=== PATIENT | male | born 1945 | race Caucasian/White ===

== ENCOUNTER 2017-01-03 11:13 | Emergency (ER) | payer MEDICARE ==
[~2017-01-03] VITALS: Ht 177.8 cm; Wt 86.2 kg
[~2017-01-03 11:13] MED LIST: /ESOM40CA OR; /PANT40TA; /PANT40TA OR; /TERBI25T OR; ACCU5TAB7; ALBUTEROL INH; ASPI81TA45; ATEN50TA2 OR; ATEN50TA2 PO; Albuterol Inhaler INH; BABY81CH OR; Bystolic; CALTRATE; DARV100T; DEPA250T2; DIAZIDE PO; EXCEDRIN; FLEXERIL; Flaxseed Oil PO; GABA300T; HYDR25TA6 OR; LISI20TA5 OR; LISI20TA5 PO; MAXA10TA17 OR; MAXA10TA17 PO; METH750T; MULTIVIT PO; NEBIVOLOL; NEUR300C; PRIL40CA; PROCTOFOAM PR; TERB250T OR; VICO5TAB OR; VICO5TAB PO; VIT; VIT D 2000 PO; VITA500T PO; VITAMIN D50000 UNT PO; ZEST20TA4 OR; ZOCO40TA; bystolic PO; flaxseed PO; lisinopril
[2017-01-03 11:14] VITALS: BP 157/73
[2017-01-03] MEDS ORDERED: ATEN50TA9 (11:32)
[2017-01-03] MEDS ORDERED: PANT40TA2 (11:32)
[2017-01-03] MEDS ORDERED: ZOLP10TA2 (11:32)
[2017-01-03] MEDS ORDERED: LIDOCAINE 2% JELLY 30 ML TOP ONE (12:15)
== END 2017-01-03 12:35 | disposition home or self-care (01) ==
LOC: M ED 12:26
DX: S01.91XA Laceration without foreign body of unspecified part of head, initial encounter (principal); W22.09XA Striking against other stationary object, initial encounter; Y92.019 Unspecified place in single-family (private) house as the place of occurrence of the external cause; Y93.89 Activity, other specified; Y99.8 Other external cause status; G43.909 Migraine, unspecified, not intractable, without status migrainosus; Z79.899 Other long term (current) drug therapy; Z88.8 Allergy status to other drugs, medicaments and biological substances

== ENCOUNTER 2017-07-19 18:15 | Emergency (ER) | payer MEDICARE ==
[~2017-07-19] VITALS: Ht 175.3 cm; Wt 85.9 kg
[~2017-07-19 18:15] MED LIST changes: +ATEN50TA9; +PANT40TA2; +ZOLP10TA2
[2017-07-19] MEDS ORDERED: GUAISYP5 PO (18:26)
[2017-07-19] MEDS ORDERED: HYDROCODONE-ACETAMIN (18:26)
[2017-07-19] MEDS ORDERED: methylPREDNISolone INJ 125 MG/2 ML VIAL (J2930) IV ONE (20:30)
[2017-07-19 20:57] LABS: VENOUS O2 SATURATION 91.4 % (60.0-80.0); VENOUS PARTIAL PRESSURE CO2 45.6 mmHg (38.0-50.0); VENOUS PARTIAL PRESSURE O2 58.1 mmHg (30.0-50.0); VENOUS STANDARD HCO3 26.1 MEQ/L; VENOUS TOTAL CO2 28.8 MEQ/L (24.0-28.0)
[2017-07-19 21:03] LABS: BASO # 0.1 10^3/uL (0.0-0.2); EOS # 0.3 10^3/uL (0.0-0.50); EOS % 4.4 % (0.0-3.0); IMMATURE GRANULOCYTE % 0.3 % (0-0); LYMPH # 1.9 10^3/uL (1.5-4.5); LYMPH % 27.7 % (24.0-44.0); MEAN CORPUSCULAR HEMOGLOBIN 29.9 pg (27.0-33.0); MEAN CORPUSCULAR VOLUME 87.9 fl (80.0-96.0); MONO # 0.6 10^3/uL (0.0-0.8); MONO % 8.1 % (0.0-5.0); NEUTROPHILS % 58.5 % (36.0-66.0); PLATELET COUNT, AUTOMATED 217 10^3/uL (150-450); RED CELL DISTRIBUTION WIDTH 12.4 % (11.5-14.5); WHITE BLOOD COUNT 6.8 10^3/uL (4.0-10.0)
[2017-07-19 21:27] LABS: ANION GAP 5 MEQ/L (8-16); BLOOD UREA NITROGEN 24 MG/DL (7-18); CALCIUM LEVEL 8.1 MG/DL (8.8-10.2); CARBON DIOXIDE LEVEL 29 MEQ/L (21-32); CHLORIDE LEVEL 106 MEQ/L (98-107); CREATININE FOR GFR 1.35 MG/DL (0.70-1.30); GLOMERULAR FILTRATION RATE 55.6 (>42); GLUCOSE, FASTING 140 MG/DL (83-110); POTASSIUM SERUM 3.7 MEQ/L (3.5-5.1); SODIUM LEVEL 140 MEQ/L (136-145)
[2017-07-19] MEDS: IPRATROPIUM 0.5MG/ALBUTEROL 2.5MG INH SOL UD 3ML (DUONEB)(J7620) NEB PRN ×2 (21:29→21:40)
[2017-07-19] MEDS ORDERED: ISOVUE-370 76% 100ML VIAL (Q9967) As Ordered ONE (22:44)
--- NOTE | 2017-07-19 23:20 | REPUSA ---
CT angiogram of the chest Clinical statement: Chest pain and shortness of breath. Technique: Multiple axial CT images were obtained from the thoracic inlet through the upper abdomen a fter a bolus administration of nonionic intravenous contrast. Coronal and sagittal reconstructions we re also obtained. Comparison: 10/31/2015. Findings: The pulmonary arteries are well-opacified with contrast, with no intraluminal filling defec ts to suggest embolism. The thoracic aorta is unremarkable. Thyroid gland is within normal limits. Th ere is no thoracic lymphadenopathy. There are no pericardial or pleural effusions. The lungs are atilio r. Limited imaging of the upper abdomen demonstrates several small gallstones and gallbladder. There are no suspicious osseous lesions. Impression: Unremarkable CT examination of the chest. No evidence of pulmonary embolism.
[2017-07-19] MEDS ORDERED: PRED20TA PO (23:45)
[2017-07-19] MEDS ORDERED: CEFU1TAB20 PO (23:45)
[2017-07-20 00:07] VITALS: BP 132/66
[2017-07-20] MEDS ORDERED: CEFUROXIME 500 MG TAB PO ONE (00:15)
--- NOTE | 2017-07-20 08:58 | REP ---
Clinical: Cough. Dyspnea . Comparison: 08/14/2016 . Technique: PA and lateral. Findings: The mediastinum and cardiac silhouette are normal. The lung hector are clear and without acute consolidation, effusion, or pneumothorax. The skeletal structures are intact and normal. Impression: 1. No acute cardiopulmonary process. Signed by Giovani Lemos MD 07/20/2017 08:50 A
[2017-07-20] MEDS ORDERED: CEFUROXIME 500 MG TAB PO SCH (09:00)
--- NOTE | 2017-07-20 14:14 | ECGEPIP ---
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
== END 2017-07-20 00:22 | disposition home or self-care (01) ==
LOC: M ED 18:15
DX: J20.9 Acute bronchitis, unspecified (principal); Z79.899 Other long term (current) drug therapy; Z88.8 Allergy status to other drugs, medicaments and biological substances; Z87.891 Personal history of nicotine dependence
CPT/HCPCS: 71020; 71275; 80048; 82550; 82553; 82803; 84484; 85025; 85379; 87040; 87070; 87077; 87184; 87205; 87804; 93005; 93041; 94640; 96374; 99285; J2930; Q9967

== ENCOUNTER 2017-11-03 07:57 | Observation (INO) | payer MEDICARE ==
[2017-11-03 08:41] LABS: BEDSIDE GLUCOSE 118 MG/DL (83-110)
[2017-11-03 08:59] LABS: BASO # 0.1 10^3/uL (0.0-0.2); BASO % 1.2 % (0.0-1.0); EOS # 0.3 10^3/uL (0.0-0.50); EOS % 5.9 % (0.0-3.0); HEMATOCRIT 40.2 % (42.0-52.0); HEMOGLOBIN 13.5 g/dl (14.0-18.0); IMMATURE GRANULOCYTE % 0.9 % (0-3.0); LYMPH # 1.4 10^3/uL (1.5-4.5); LYMPH % 24.4 % (24.0-44.0); MEAN CORPUSCULAR HEMOGLOBIN 29.5 pg (27.0-33.0); MEAN CORPUSCULAR HGB CONC 33.6 g/dl (32.0-36.5); MONO # 0.5 10^3/uL (0.0-0.8); MONO % 8.7 % (0.0-5.0); NEUTROPHILS # 3.4 10^3/uL (1.8-7.7); NEUTROPHILS % 58.9 % (36.0-66.0); PLATELET COUNT, AUTOMATED 193 10^3/uL (150-450); RED BLOOD COUNT 4.57 10^6/uL (4.30-6.10); RED CELL DISTRIBUTION WIDTH 12.7 % (11.5-14.5); WHITE BLOOD COUNT 5.7 10^3/uL (4.0-10.0)
[2017-11-03 09:17] LABS: ANION GAP 6 MEQ/L (8-16); BLOOD UREA NITROGEN 23 MG/DL (7-18); CALCIUM LEVEL 8.4 MG/DL (8.8-10.2); CARBON DIOXIDE LEVEL 28 MEQ/L (21-32); CHLORIDE LEVEL 106 MEQ/L (98-107); CREATININE FOR GFR 1.17 MG/DL (0.70-1.30); GLOMERULAR FILTRATION RATE > 60.0 (>42); GLUCOSE, FASTING 117 MG/DL (70-100); POTASSIUM SERUM 4.2 MEQ/L (3.5-5.1); SODIUM LEVEL 140 MEQ/L (136-145)
[2017-11-03 09:19] LABS: INR 0.99; PARTIAL THROMBOPLASTIN TIME 30.2 SECONDS (26.8-37.9); PROTHROMBIN TIME 13.2 SECONDS (12.4-14.5)
[2017-11-03] MEDS: NORCO, ANEXSIA 5/325MG TABLET (HYDROcodone/ACETAMINOPHEN) PO (09:50)
[2017-11-03] MEDS: LORazepam 2 MG/ML VIAL (J2060) IV (10:04)
[2017-11-03] MEDS ORDERED: ALBUTEROL 90 MCG/ACT 8GM HFA INHALER INH (15:45)
[2017-11-03] MEDS ORDERED: ACETAMINOPHEN 500 MG TAB PO (15:45)
[2017-11-03] MEDS: ENOXAPARIN 40 MG/0.4 ML SYRINGE (J1650) SC (15:53)
[2017-11-03] MEDS: CLOPIDOGREL 75 MG TAB PO (15:53)
[2017-11-03] MEDS: ATORVASTATIN 20 MG TAB PO (15:54)
[2017-11-03] MEDS: ASPIRIN 81 MG ENTERIC TAB PO (15:54)
[2017-11-03] MEDS: ACETAMINOPHEN TAB 650MG DOSE (2X325MG) PO (16:13)
[2017-11-03] MEDS ORDERED: SLF 3 ML SYR IV (22:45)
[2017-11-04 05:19] LABS: HEMATOCRIT 41.2 % (42.0-52.0); HEMOGLOBIN 13.4 g/dl (14.0-18.0); MEAN CORPUSCULAR HEMOGLOBIN 28.6 pg (27.0-33.0); MEAN CORPUSCULAR HGB CONC 32.5 g/dl (32.0-36.5); PLATELET COUNT, AUTOMATED 179 10^3/uL (150-450); RED BLOOD COUNT 4.68 10^6/uL (4.30-6.10); RED CELL DISTRIBUTION WIDTH 12.4 % (11.5-14.5); WHITE BLOOD COUNT 5.9 10^3/uL (4.0-10.0)
[2017-11-04 05:46] LABS: ANION GAP 6 MEQ/L (8-16); BLOOD UREA NITROGEN 21 MG/DL (7-18); CALCIUM LEVEL 8.7 MG/DL (8.8-10.2); CARBON DIOXIDE LEVEL 31 MEQ/L (21-32); CHLORIDE LEVEL 103 MEQ/L (98-107); CHOLESTEROL LEVEL 185 MG/DL (<200); CHOLESTEROL RISK RATIO 7.115 (<5); CREATININE FOR GFR 1.21 MG/DL (0.70-1.30); GLOMERULAR FILTRATION RATE > 60.0 (>42); GLUCOSE, FASTING 121 MG/DL (70-100); HDL CHOLESTEROL 26 MG/DL (>40); LDL CHOLESTEROL 97.2 MG/DL (<100); MAGNESIUM LEVEL 2.1 MG/DL (1.8-2.4); NON-HDL-C 159 MG/DL; SODIUM LEVEL 140 MEQ/L (136-145); TRIGLYCERIDES LEVEL 309 MG/DL (<150)
[2017-11-04] MEDS: SLF 3 ML SYR IV ×3 (05:46→14:15)
[2017-11-04 06:54] LABS: ESTIMATED AVERAGE GLUCOSE 126 MG/DL (60-110)
[2017-11-04] MEDS: VITAMIN E 400 INTERNATIONAL UNITS CAP PO (08:47)
[2017-11-04] MEDS: PANTOPRAZOLE 40MG TAB (PROTONIX) PO (08:47)
[2017-11-04] MEDS: ASCORBIC ACID 500 MG TAB PO (08:47)
[2017-11-04] MEDS: VITAMIN D 1,000 INTERNATIONAL UNITS TABLET PO (08:47)
[2017-11-04] MEDS: ATORVASTATIN 20 MG TAB PO (08:47)
[2017-11-04] MEDS: ENOXAPARIN 40 MG/0.4 ML SYRINGE (J1650) SC (08:48)
[2017-11-04] MEDS: ATENOLOL 50 MG TAB PO (08:48)
[2017-11-04] MEDS: ASPIRIN 81 MG ENTERIC TAB PO (08:53)
[2017-11-04] MEDS ORDERED: CLOPIDOGREL 75 MG TAB PO (09:00)
[2017-11-04] MEDS ORDERED: ATORVASTATIN 20 MG TAB PO (09:00)
[2017-11-04] MEDS: CHLORTHALIDONE 25 MG TAB PO (09:00)
[2017-11-04] MEDS: RIZATRIPTAN MLT 10 MG TAB PO (14:13)
[2017-11-05 05:36] LABS: HEMATOCRIT 40.2 % (42.0-52.0); HEMOGLOBIN 13.5 g/dl (14.0-18.0); MEAN CORPUSCULAR HGB CONC 33.6 g/dl (32.0-36.5); MEAN CORPUSCULAR VOLUME 86.3 fl (80.0-96.0); PLATELET COUNT, AUTOMATED 176 10^3/uL (150-450); RED BLOOD COUNT 4.66 10^6/uL (4.30-6.10); RED CELL DISTRIBUTION WIDTH 12.4 % (11.5-14.5); WHITE BLOOD COUNT 5.5 10^3/uL (4.0-10.0)
[2017-11-05 05:52] LABS: ANION GAP 6 MEQ/L (8-16); BLOOD UREA NITROGEN 25 MG/DL (7-18); CALCIUM LEVEL 8.1 MG/DL (8.8-10.2); CARBON DIOXIDE LEVEL 28 MEQ/L (21-32); CHLORIDE LEVEL 108 MEQ/L (98-107); CREATININE FOR GFR 1.33 MG/DL (0.70-1.30); GLOMERULAR FILTRATION RATE 56.6 (>42); GLUCOSE, FASTING 126 MG/DL (70-100); SODIUM LEVEL 142 MEQ/L (136-145)
[2017-11-05] MEDS: SLF 3 ML SYR IV (06:27)
[2017-11-05] MEDS: VITAMIN E 400 INTERNATIONAL UNITS CAP PO (09:02)
[2017-11-05] MEDS: ASPIRIN 81 MG ENTERIC TAB PO (09:02)
[2017-11-05] MEDS: PANTOPRAZOLE 40MG TAB (PROTONIX) PO (09:02)
[2017-11-05] MEDS: ATORVASTATIN 20 MG TAB PO (09:02)
[2017-11-05] MEDS: ASCORBIC ACID 500 MG TAB PO (09:03)
[2017-11-05] MEDS: CHLORTHALIDONE 25 MG TAB PO (09:03)
[2017-11-05] MEDS: ATENOLOL 50 MG TAB PO (09:03)
[2017-11-05] MEDS: VITAMIN D 1,000 INTERNATIONAL UNITS TABLET PO (09:03)
[2017-11-05] MEDS: ENOXAPARIN 40 MG/0.4 ML SYRINGE (J1650) SC (09:31)
== END 2017-11-05 10:50 | disposition home or self-care (01) ==
LOC: M ED 07:57 → M ED INP 12:40 → M PCU 15:10
PROVIDERS: Hospitalist
DX: G45.9 Transient cerebral ischemic attack, unspecified (principal); I10 Essential (primary) hypertension; G43.909 Migraine, unspecified, not intractable, without status migrainosus; I67.1 Cerebral aneurysm, nonruptured; I67.82 Cerebral ischemia; I69.320 Aphasia following cerebral infarction; M54.2 Cervicalgia; H53.2 Diplopia; M51.26 Other intervertebral disc displacement, lumbar region; K25.9 Gastric ulcer, unspecified as acute or chronic, without hemorrhage or perforation; Z79.899 Other long term (current) drug therapy; Z79.82 Long term (current) use of aspirin; Z88.8 Allergy status to other drugs, medicaments and biological substances
CPT/HCPCS: J2060

== ENCOUNTER → 2018-04-26 | Outpatient (CLI) | payer MEDICARE | LOC: M LAB 10:43 | DX: M25.562 Pain in left knee (principal) | CPT/HCPCS: 73564 ==

== ENCOUNTER 2018-08-19 17:07 | Emergency (ER) | payer MEDICARE ==
[2018-08-19] MEDS: MORPHINE 4 MG/ML 1ML VIAL/SYRINGE (J2270) IM (17:28)
[2018-08-19 17:45] LABS: APPEARANCE, URINE CLEAR (CLEAR); BACTERIA, URINE AUTO NEGATIVE (NEGATIVE); BILIRUBIN, URINE AUTO NEGATIVE (NEGATIVE); BLOOD, URINE BLOOD NEGATIVE (NEGATIVE); COLOR, URINE YELLOW (YELLOW); GLUCOSE, URINE (UA) AUTO NEGATIVE (NEGATIVE); KETONE, URINE AUTO NEGATIVE (NEGATIVE); LEUKOCYTE ESTERASE, URINE AUTO NEGATIVE (NEGATIVE); MUCUS, URINE SMALL (NEGATIVE); NITRITE, URINE AUTO NEGATIVE (NEGATIVE); PROTEIN, URINE AUTO NEGATIVE (NEGATIVE); RBC, URINE AUTO 10 /HPF (0-3); SPECIFIC GRAVITY URINE AUTO 1.021 (1.002-1.035); SQUAMOUS EPITHELIAL CELL UR AU 0 /HPF (0-6); WBC, URINE AUTO 1 /HPF (0-3)
[2018-08-19] MEDS: fentaNYL 100 MCG/2 ML INJECTION (J3010) IV (18:28)
[2018-08-19] MEDS: NS 1,000 ML IV (18:28)
[2018-08-19 18:40] LABS: BASO # 0.1 10^3/uL (0.0-0.2); BASO % 0.9 % (0.0-1.0); EOS # 0.3 10^3/uL (0.0-0.50); EOS % 4.9 % (0.0-3.0); HEMATOCRIT 40.6 % (42.0-52.0); HEMOGLOBIN 13.5 g/dl (13.5-17.5); IMMATURE GRANULOCYTE % 0.3 % (0-3.0); LYMPH % 28.4 % (24.0-44.0); MEAN CORPUSCULAR HEMOGLOBIN 29.6 pg (27.0-33.0); MEAN CORPUSCULAR HGB CONC 33.3 g/dl (32.0-36.5); MONO # 0.6 10^3/uL (0.0-0.8); MONO % 7.9 % (0.0-5.0); NEUTROPHILS % 57.6 % (36.0-66.0); PLATELET COUNT, AUTOMATED 226 10^3/uL (150-450); RED BLOOD COUNT 4.56 10^6/uL (4.30-6.10); RED CELL DISTRIBUTION WIDTH 12.7 % (11.5-14.5); WHITE BLOOD COUNT 6.9 10^3/uL (4.0-10.0)
[2018-08-19 18:51] LABS: INR 0.97; PROTHROMBIN TIME 12.9 SECONDS (12.1-14.4)
[2018-08-19 18:52] LABS: PARTIAL THROMBOPLASTIN TIME 28.4 SECONDS (25.4-37.6)
[2018-08-19 18:54] LABS: ANION GAP 8 MEQ/L (8-16); BLOOD UREA NITROGEN 28 MG/DL (7-18); CALCIUM LEVEL 8.4 MG/DL (8.8-10.2); CARBON DIOXIDE LEVEL 27 MEQ/L (21-32); CHLORIDE LEVEL 108 MEQ/L (98-107); GLOMERULAR FILTRATION RATE 45.6 (>42); GLUCOSE, FASTING 147 MG/DL (70-100); POTASSIUM SERUM 4.1 MEQ/L (3.5-5.1); SODIUM LEVEL 143 MEQ/L (136-145)
[2018-08-19] MEDS: cefTRIAXone SOD 1 GM in D5W MINI-BAG PLUS 50 ML IV (20:11)
== END 2018-08-19 21:32 | disposition home or self-care (01) ==
LOC: M ED 17:07
DX: N45.3 Epididymo-orchitis (principal); R31.9 Hematuria, unspecified; K80.20 Calculus of gallbladder without cholecystitis without obstruction; E86.0 Dehydration; K25.9 Gastric ulcer, unspecified as acute or chronic, without hemorrhage or perforation; G43.909 Migraine, unspecified, not intractable, without status migrainosus; I10 Essential (primary) hypertension; K21.9 Gastro-esophageal reflux disease without esophagitis; Z86.73 Personal history of transient ischemic attack (TIA), and cerebral infarction without residual deficits; Z79.899 Other long term (current) drug therapy; Z88.6 Allergy status to analgesic agent
CPT/HCPCS: J2270

== ENCOUNTER → 2018-09-22 | Outpatient (REF) | payer MEDICARE ==
[~2018-09-22] MED LIST changes: +ASPI81TAEC PO; -ATEN50TA9; +ATEN50TA9 PO; +ATOR1TAB21 PO; +CEFU1TAB20 PO; +CIPR-249 PO; +GUAISYP5 PO; +HYDROCODONE-ACETAMIN; +OMEG1CAP16 PO; -PANT40TA2; +PANT40TA3 PO; +PRED20TA PO; +PROAAER10 INH; +RIZA10TA4 PO; +TYLE500T78 PO; +VENTAER INH; +VITA100066 PO; +VITA400C7 PO; -ZOLP10TA2; +ZOLP10TA2 PO
[2018-09-22 13:30] LABS: APPEARANCE, URINE CLEAR (CLEAR); BACTERIA, URINE AUTO NEGATIVE (NEGATIVE); BILIRUBIN, URINE AUTO NEGATIVE (NEGATIVE); BLOOD, URINE BLOOD NEGATIVE (NEGATIVE); COLOR, URINE YELLOW (YELLOW); GLUCOSE, URINE (UA) AUTO NEGATIVE (NEGATIVE); KETONE, URINE AUTO NEGATIVE (NEGATIVE); LEUKOCYTE ESTERASE, URINE AUTO NEGATIVE (NEGATIVE); NITRITE, URINE AUTO NEGATIVE (NEGATIVE); PROTEIN, URINE AUTO NEGATIVE (NEGATIVE); RBC, URINE AUTO 11 /HPF (0-3); SPECIFIC GRAVITY URINE AUTO 1.016 (1.002-1.035); SQUAMOUS EPITHELIAL CELL UR AU 0 /HPF (0-6); UROBILINOGEN, URINE AUTO 0.2 mg/dL (0.0-2.0); WBC, URINE AUTO 1 /HPF (0-3)
== END ==
LOC: M SMT 13:06
PROVIDERS: ATTEND Nurse Practitioner Women's Health
DX: R31.21 Asymptomatic microscopic hematuria (principal)
CPT/HCPCS: 81001; 87086; 88108; G0463

== ENCOUNTER → 2018-10-12 | Outpatient (CLI) | payer MEDICARE ==
--- NOTE | 2018-10-12 10:14 | REP ---
Chest two views HISTORY: Microscopic hematuria Comparison: 11/03/2017 The lungs are clear. The heart is normal in size. The pulmonary vasculature is normal in appearance. The bony structure is intact. IMPRESSION: No acute disease. Electronically Signed by Kirill Alcantara MD 10/12/2018 10:06 A
[2018-10-12 10:18] LABS: HEMATOCRIT 40.9 % (42.0-52.0); HEMOGLOBIN 13.2 g/dl (13.5-17.5); MEAN CORPUSCULAR HEMOGLOBIN 29.2 pg (27.0-33.0); MEAN CORPUSCULAR HGB CONC 32.3 g/dl (32.0-36.5); MEAN CORPUSCULAR VOLUME 90.5 fl (80.0-96.0); PLATELET COUNT, AUTOMATED 204 10^3/uL (150-450); RED BLOOD COUNT 4.52 10^6/uL (4.30-6.10); WHITE BLOOD COUNT 4.9 10^3/uL (4.0-10.0)
[2018-10-12 10:36] LABS: INR 0.99; PARTIAL THROMBOPLASTIN TIME 29.5 SECONDS (25.4-37.6); PROTHROMBIN TIME 13.2 SECONDS (12.1-14.4)
[2018-10-12 10:40] LABS: BLOOD UREA NITROGEN 26 MG/DL (7-18); CALCIUM LEVEL 8.8 MG/DL (8.8-10.2); CARBON DIOXIDE LEVEL 29 MEQ/L (21-32); CHLORIDE LEVEL 106 MEQ/L (98-107); CREATININE FOR GFR 1.19 MG/DL (0.70-1.30); GLOMERULAR FILTRATION RATE > 60.0 (>42); GLUCOSE, FASTING 111 MG/DL (70-100); POTASSIUM SERUM 4.3 MEQ/L (3.5-5.1); SODIUM LEVEL 141 MEQ/L (136-145)
--- NOTE | 2018-10-13 08:34 | ECGEPIP ---
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
== END ==
LOC: M LAB 09:20
PROVIDERS: ATTEND Nurse Practitioner Women's Health
DX: Z01.818 Encounter for other preprocedural examination (principal); R31.29 Other microscopic hematuria

== ENCOUNTER → 2018-10-17 | Outpatient (REF) | payer MEDICARE | LOC: M SMT 12:56 | PROVIDERS: ATTEND Urology | DX: Z01.818 Encounter for other preprocedural examination (principal); N39.0 Urinary tract infection, site not specified; R31.9 Hematuria, unspecified ==

== ENCOUNTER 2018-10-27 08:33 | Day surgery (SDC) | payer MEDICARE ==
[~2018-10-27] VITALS: Ht 175.3 cm; Wt 85.3 kg
[~2018-10-27 08:33] MED LIST changes: +LIDOCAINE 1% MDV 20ML VIAL SQ PRN; +LR 1,000 ML IV SCH
[2018-10-27] MEDS ORDERED: ONDANSETRON 4MG/2ML VIAL (J2405) As Ordered ONE (09:42)
[2018-10-27] MEDS ORDERED: METOCLOPRAMIDE INJ 10MG/2ML VIAL (J2765) As Ordered ONE (09:42)
[2018-10-27] MEDS ORDERED: LIDOCAINE 2% INJ 100 MG/5 ML SDV (FOR ANES.) As Ordered ONE (09:42)
[2018-10-27] MEDS ORDERED: ROCURONIUM BROMIDE 50 MG/5 ML VIAL As Ordered ONE (09:42)
[2018-10-27] MEDS ORDERED: fentaNYL 100 MCG/2 ML INJECTION (J3010) As Ordered ONE (09:42)
[2018-10-27] MEDS ORDERED: MIDAZOLAM INJ 2 MG/2 ML VIAL (J2250) As Ordered ONE (09:42)
[2018-10-27] MEDS ORDERED: PROPOFOL 200 MG/20 ML VIAL As Ordered ONE (09:42)
[2018-10-27] MEDS ORDERED: LIDOCAINE 2% 5ML JELLY UROJET As Ordered ONE (10:34)
[2018-10-27] MEDS ORDERED: ACETAMINOPHEN TAB 650MG DOSE (2X325MG) PO PRN (11:30)
[2018-10-27] MEDS ORDERED: fentaNYL 100 MCG/2 ML INJECTION (J3010) IV PRN (11:30)
[2018-10-27 14:00] VITALS: BP 170/70
--- NOTE | 2018-10-27 19:03 | RO ---
DATE OF PROCEDURE: 10/27/2018 PREPROCEDURE DIAGNOSIS: Microscopic hematuria. POSTPROCEDURE DIAGNOSIS: Bladder tumor. PROCEDURE: Cystoscopy, transurethral resection of bladder tumor (less than 2cm). SURGEON: Dr. Steve Ivey [employer]ILOR W[employer] GARMENT ALTERATION: None. ANESTHESIA: General. OPERATIVE INDICATIONS: This is a 73-year-old male who was found to have microscopic hematuria. He did not want to have an office cystoscopy. He was, therefore, brought to the operating room today for cystoscopy and possible transurethral resection of bladder tumor. DESCRIPTION OF PROCEDURE: The patient was brought to the operating room and anesthesia was administered. Prophylactic antibiotics were infused. He was then placed in the dorsal lithotomy position and prepped and draped in the usual sterile fashion. At this point a rigid cystoscope was inserted through the urethral meatus and advanced into the bladder. The bladder was then thoroughly examined with both the 30 and the 70-degree lenses, and of note, there was an approximately 1 cm papillary tumor seen on the posterior bladder wall. At this point, the cystoscope was removed, and a resectoscope was inserted into the urethral meatus and advanced into the bladder using the visual obturator. Once that was done, the tumor was then completely resected using the loop. Hemostasis was then obtained using coagulation current. The specimen was then removed from the bladder to be sent for pathologic analysis. Once satisfied with hemostasis, the resectoscope was removed, and an 18-Turkish Roger catheter was inserted into the bladder. The balloon was filled with 10 mL of sterile water and the catheter was connected to gravity drainage. This marked the conclusion of the procedure. The patient was then taken out of the dorsal lithotomy position, awakened from anesthesia and transported to the recovery room in stable condition. Estimated blood loss: 5 mL. Complications: None. Specimens: Bladder tumor. PLAN: The patient will followup in the clinic in approximately 1 week for catheter removal and to discuss pathology results. RICKI
== END 2018-10-27 14:05 | disposition home or self-care (01) ==
LOC: M SDC 08:33
PROVIDERS: ATTEND Urology
DX: C67.4 Malignant neoplasm of posterior wall of bladder (principal); I10 Essential (primary) hypertension; K21.9 Gastro-esophageal reflux disease without esophagitis; Z79.899 Other long term (current) drug therapy; Z88.8 Allergy status to other drugs, medicaments and biological substances
CPT/HCPCS: 52234; 88307; J0690; J2250; J2405; J2765; J3010

== ENCOUNTER → 2019-05-28 | Outpatient (CLI) | payer MEDICARE ==
[~2019-05-28] MED LIST changes: -/ESOM40CA OR; -/PANT40TA; -/PANT40TA OR; -/TERBI25T OR; +LAMI1TAB6 OR; -LIDOCAINE 1% MDV 20ML VIAL SQ PRN; -LR 1,000 ML IV SCH; +NEXI1CAP3 OR; +PROT1TAB2; +PROT1TAB2 OR
[2019-05-28 15:00] LABS: CREATININE FOR GFR 1.7 MG/DL (0.70-1.30); GLOMERULAR FILTRATION RATE 42.4 (>42)
== END ==
LOC: M LAB 13:52
PROVIDERS: ATTEND Otolaryngology
DX: H90.3 Sensorineural hearing loss, bilateral (principal)

== ENCOUNTER 2019-06-13 17:32 | Inpatient (IN) | payer MEDICARE ==
[~2019-06-13] VITALS: Ht 177.8 cm; Wt 88.7 kg
[2019-06-13] MEDS ORDERED: ASPIRIN 81 MG CHEW TABLET PO ONE (18:00)
[2019-06-13] MEDS: METOPROLOL 5 MG/5 ML VIAL IV SCH ×3 (18:09→18:28)
--- NOTE | 2019-06-13 18:25 | REP ---
CHEST, PORTABLE: AP portable view of the chest is performed and compared to prior study of 10/12/2018. I see no evidence of acute infiltrate or pulmonary edema. Cardiac silhouette is slightly prominent, but unchanged. Mediastinal silhouette is unchanged. IMPRESSION: No acute pulmonary disease. Electronically Signed by Conner Phelps MD 06/13/2019 06:47 P
[2019-06-13 18:35] LABS: BASO # 0.1 10^3/uL (0.0-0.2); BASO % 1.3 % (0.0-1.0); EOS # 0.2 10^3/uL (0.0-0.5); HEMATOCRIT 40.3 % (42.0-52.0); HEMOGLOBIN 13.6 g/dl (13.5-17.5); LYMPH # 1.5 10^3/uL (1.5-5.0); LYMPH % 23.9 % (24.0-44.0); MEAN CORPUSCULAR HGB CONC 33.7 g/dl (32.0-36.5); MONO # 0.6 10^3/uL (0.0-0.8); MONO % 9.3 % (0.0-5.0); NEUTROPHILS # 3.9 10^3/uL (1.5-8.5); NEUTROPHILS % 62.3 % (36.0-66.0); PLATELET COUNT, AUTOMATED 220 10^3/uL (150-450); RED BLOOD COUNT 4.53 10^6/uL (4.30-6.10); WHITE BLOOD COUNT 6.2 10^3/uL (4.0-10.0)
[2019-06-13 18:52] LABS: INR 0.95; PROTHROMBIN TIME 12.4 SECONDS (11.8-14.0)
[2019-06-13 18:54] LABS: BLOOD UREA NITROGEN 32 MG/DL (7-18); CALCIUM LEVEL 8.1 MG/DL (8.8-10.2); CARBON DIOXIDE LEVEL 28 MEQ/L (21-32); CHLORIDE LEVEL 106 MEQ/L (98-107); CK-MB VALUE MASS 1.9 NG/ML (<3.6); CPK CREATINE PHOSPHOKINASE 169 U/L (39-308); CREATININE FOR GFR 1.52 MG/DL (0.70-1.30); GLOMERULAR FILTRATION RATE 48.2 (>42); GLUCOSE, FASTING 170 MG/DL (70-100); MB/CK RELATIVE INDEX 1.12 (< OR =4); POTASSIUM SERUM 3.7 MEQ/L (3.5-5.1); SODIUM LEVEL 141 MEQ/L (136-145); TROPONIN I < 0.02 NG/ML (< 0.10)
[2019-06-13 19:02] LABS: ALBUMIN 3.7 GM/DL (3.2-5.2); ALT/SGPT 27 U/L (12-78); BILIRUBIN,DIRECT < 0.1 MG/DL (0.0-0.2); BILIRUBIN,TOTAL 0.4 MG/DL (0.2-1.0); LIPASE 97 U/L (73-393); MAGNESIUM LEVEL 1.8 MG/DL (1.8-2.4); TOTAL PROTEIN 7.1 GM/DL (6.4-8.2)
[2019-06-13] MEDS ORDERED: NITROGLYCERIN 0.4 MG SUBL TABLET SL PRN (20:00)
[2019-06-13] MEDS ORDERED: VITA400C53 PO (20:19)
[2019-06-13] MEDS ORDERED: MOM 30ML SUSPENSION UDC PO PRN (21:00)
[2019-06-13] MEDS ORDERED: ALBUTEROL 90 MCG/ACT 8GM HFA INHALER INH PRN (21:00)
[2019-06-13] MEDS ORDERED: zolPIDEM TARTRATE 5 MG TAB PO PRN (21:00)
[2019-06-13] MEDS ORDERED: MAALOX 30 ML SUSP *UDC PO PRN (21:00)
[2019-06-13] MEDS ORDERED: ACETAMINOPHEN TAB 650MG DOSE (2X325MG) PO PRN (21:00)
[2019-06-13] MEDS ORDERED: hydrALAZINE INJ 20 MG/ML VIAL IV PRN (21:15)
--- NOTE | 2019-06-13 21:15 | HPEPDOC ---
General Date of Admission 06/13/19 Date of Service: Jun 13, 2019 Primary Care Physician: A Chief Complaint The patient is a 74-year-old male admitted with a reason for visit of Chest Pain. Source: Patient Exam Limitations: No limitations Timing/Duration: Other Severity: Moderate (since this afternoon) Associated Symptoms: Other (, palpitations) History of Present Illness 74 years old white male with past medical history of hypertension, was in usual state of health until today when he let on and is reclining chair, he started feeling palpitations and his blood pressure was found to be very high and heart rate very high by his . Hence, was brought to the emergency room., Eyes, chest pain, shortness of breath, nausea, vomiting, etc. Home Medications Scheduled Ascorbic Acid (Vitamin C) 500 Mg Tab, 500 MG PO DAILY, (Reported) Atenolol/Chlorthalidone (Atenolol-Chlorthalidone 50-25) 1 Tab Tab, 1 TAB PO DAILY, (Reported) Cholecalciferol (Vitamin D3) (Vitamin D3) 1,000 Unit Tab, 1,000 UNIT PO DAILY, (Reported) [place]-3/Dha/Epa/Fish Oil ([place] 3 500 Softgel) 1 Cap Cap, 1 CAP PO DAILY, (Reported) Pantoprazole Sodium (Pantoprazole Sodium) 40 Mg Tab, 40 MG PO DAILY, (Reported) Vitamin E (Vitamin E) 400 Unit Capsule, 400 UNIT PO DAILY, (Reported) Scheduled PRN Albuterol Sulfate (Proair Hfa) 108 Mcg/Act Aer, 2 PUFF INH PRN PRN for SHORTNESS OF BREATH, (Reported) Rizatriptan Benzoate (Rizatriptan) 10 Mg Tab, 10 MG PO PRN PRN for MIGRAINE, (Reported) Zolpidem Tartrate (Zolpidem Tartrate) 10 Mg Tab, 10 MG PO QHS PRN for SLEEP, (Reported) Allergies Coded Allergies: ciprofloxacin (Verified Allergy, Severe, 06/13/19) NSAIDS (Non-Steroidal Anti-Inflamma (Verified Adverse Reaction, Unknown, has an ul;cer, 06/13/19) aspirin (Verified Adverse Reaction, Unknown, has an ulcer, 06/13/19) Past Medical History Medical History Hypertension Surgical History Status post right shoulder surgery, status post right knee surgery, history of repair of bleeding ulcers, repair of right inguinal hernia, status post cataract extraction Social History * Smoker: former Smoker Alcohol: Denies Drugs: denies A-FIB/CHADSVASC A-FIB History Current/History of A-Fib/PAF?: No Review of Systems Constitutional: Denies: Chills, Fever, Malaise, Night Sweats, Weakness, Fatigue, Weight Loss, Lethargy, Other Eyes: Denies: Pain, Vision change, Conjunctivae inflammation, Eyelid inflammation, Redness, Other ENT: Denies: Head Aches, Ear Pain, Dysphagia, Sinus Congestion, Post Nasal Drip, Sore Throat, Epistaxis, Other Symptoms Skin: Denies: Rash, Lesions, Jaundice, Bruising, Itching, Dry, Breakdown, Nail Changes, Other Cardiovascular: Reports: Palpitations Gastrointestinal: Denies: Nausea, Vomiting, Abdominal Pain, Diarrhea, Constipation, Melena, Hematochezia, Other Symptoms Genitourinary: Denies: Dysuria, Frequency, Incontinence, Hematuria, Retention, Other Symptoms Hematologic: Denies: Bruising, Bleeding Excessively, Petecchia, Purpura, Enlarged Lymph Nodes, Other Hematologic Endocrine: Denies: Polydipsia, Polyphagia, Polyuria, Heat Intolerance, Cold Intolerance, Other Endocrine Sx Musculoskeletal: Denies: Neck Pain, Back Pain, Shoulder Pain, Arm Pain, Hand Pain, Leg Pain, Foot Pain, Joint Pain, Muscle Pain, Spasms, Other Symptoms Neurological: Denies: Weakness, Numbness, Incoordination, Change in speech, Confusion, Seizures, Other Symptoms Psych: Denies: Mood Normal, Anxiety, Depression, Memory Issues, Thoughts of Self Harm, Anger, Thoughts of Harming Other, Other Psych Physical Examination General Exam: Positive: Alert, Cooperative Eye Exam: Positive: PERRLA, Conjunctiva & lids normal ENT Exam: Positive: Atraumatic, Mucous membr. moist/pink Neck Exam: Positive: Supple, JVD Chest Exam: Positive: Clear to auscultation, Normal air movement Heart Exam: Positive: Tachycardic, Irregular Rhythm, Normal S1, Normal S2 Abdomen Exam: Positive: Normal bowel sounds, Soft, Tenderness Skin Exam: Positive: Nl turgor and temperature Neuro Exam: Positive: Normal Gait, Strength at 5/5 X4 ext, Sensation Intact Vital Signs Vital Signs Date Time Temp Pulse Resp B/P (MAP) Pulse Ox O2 Delivery O2 Flow Rate FiO2 06/13/19 20:15 129 96 06/13/19 19:48 197/90 (125) 06/13/19 17:33 98.8 16 Room Air Laboratory Data Labs 24H Laboratory Tests 2 06/13/19 17:39: Immature Granulocyte % (Auto) 0.2, White Blood Count 6.2, Red Blood Count 4.53, Hemoglobin 13.6, Hematocrit 40.3L, Mean Corpuscular Volume 89.0, Mean Corpuscular Hemoglobin 30.0, Mean Corpuscular Hemoglobin Concent 33.7, Red Cell Distribution Width 12.8, Platelet Count 220, Neutrophils (%) (Auto) 62.3, Lymphocytes (%) (Auto) 23.9L, Monocytes (%) (Auto) 9.3H, Eosinophils (%) (Auto) 3.0, Basophils (%) (Auto) 1.3H, Neutrophils # (Auto) 3.9, Lymphocytes # (Auto) 1.5, Monocytes # (Auto) 0.6, Eosinophils # (Auto) 0.2, Basophils # (Auto) 0.1, Nucleated Red Blood Cells % (auto) 0.0, Anion Gap 7L, Glomerular Filtration Rate 48.2, Blood Urea Nitrogen 32H, Creatinine 1.52H, Sodium Level 141, Potassium Level 3.7, Chloride Level 106, Carbon Dioxide Level 28, Calcium Level 8.1L, Total Creatine Kinase 169, Creatine Kinase MB 1.9, Creatine Kinase MB Relative Index 1.12, Troponin I < 0.02 06/13/19 17:55: Prothrombin Time 12.4, Prothromb Time International Ratio 0.95, Activated Partial Thromboplast Time 30.0, Phosphorus Level 3.0, Magnesium Level 1.8, Aspartate Amino Transf (AST/SGOT) 21, Alanine Aminotransferase (ALT/SGPT) 27, A lkaline Phosphatase 118H, Total Bilirubin 0.4, Direct Bilirubin < 0.1, Total Protein 7.1, Albumin 3.7, Albumin/Globulin Ratio 1.09, Lipase 97, Thyroid Stimulating Hormone (TSH) 1.450, Free Thyroxine 0.90 CBC/BMP Laboratory Tests 06/13/19 17:39 Red Blood Count 4.53, Mean Corpuscular Volume 89.0, Mean Corpuscular Hemoglobin 30.0, Mean Corpuscular Hemoglobin Concent 33.7, Red Cell Distribution Width 12.8, Neutrophils (%) (Auto) 62.3, Lymphocytes (%) (Auto) 23.9 L, Monocytes (%) (Auto) 9.3 H, Eosinophils (%) (Auto) 3.0, Basophils (%) (Auto) 1.3 H, Neutrophils # (Auto) 3.9, Lymphocytes # (Auto) 1.5, Monocytes # (Auto) 0.6, Eosinophils # (Auto) 0.2, Basophils # (Auto) 0.1, Calcium Level 8.1 L, Total Creatine Kinase 169 Problems (1) Atrial fibrillation with rapid ventricular response Status: Acute Problem Text: Surgeries white male with past medical history of hypertension, double of sudden onset of palpitations about 5 PM and this afternoon, when his blood 5 to the blood pressure was very high and his heart rate was also very high and decided come to ER where he was diagnosed with a A. fib with RVR Admitted to telemetry/PCU Patient was given beta blockers in ED without any effect to control Start Cardizem 30 mg by mouth every 6 hours to better control the ventricular rate Lovenox 1 mg/kg subcutaneous every 12 hours for anticoagulation Echocardiogram Troponins EKG in a.m. (2) HTN (hypertension) Problem Text: Patient was taking beta shannan at home Will hold beta blockers as patient is currently currently on Cardizem 30 mg by mouth every 6 hours for rate control Beta blockers later on can be added later if the blood pressure is not under well control Monitor vital signs frequently Plan / VTE VTE Prophylaxis Ordered?: Yes MARTY HILARIO MD Jun 13, 2019 21:15
[2019-06-13 23:35] VITALS: BP 138/76
[2019-06-13] MEDS: DOCUSATE SODIUM 100 MG CAP PO SCH (23:50)
[2019-06-13] MEDS: ENOXAPARIN 100MG/1ML SYRINGE (J1650) SC SCH (23:56)
[2019-06-14] MEDS ORDERED: SLF 3 ML SYR IV PRN (01:30)
[2019-06-14 02:11] LABS: CREATININE FOR GFR 1.38 MG/DL (0.70-1.30); GLOMERULAR FILTRATION RATE 53.9 (>42); TROPONIN I < 0.02 NG/ML (< 0.10)
[2019-06-14 04:00] VITALS: BP 124/72
[2019-06-14 05:27] LABS: HEMOGLOBIN 13.1 g/dl (13.5-17.5); MEAN CORPUSCULAR HEMOGLOBIN 29.4 pg (27.0-33.0); MEAN CORPUSCULAR HGB CONC 32.8 g/dl (32.0-36.5); MEAN CORPUSCULAR VOLUME 89.7 fl (80.0-96.0); PLATELET COUNT, AUTOMATED 180 10^3/uL (150-450); RED BLOOD COUNT 4.46 10^6/uL (4.30-6.10); WHITE BLOOD COUNT 5.2 10^3/uL (4.0-10.0)
[2019-06-14 05:56] LABS: ALBUMIN 3.2 GM/DL (3.2-5.2); ALT/SGPT 19 U/L (12-78); BILIRUBIN,TOTAL 0.2 MG/DL (0.2-1.0); BLOOD UREA NITROGEN 27 MG/DL (7-18); CALCIUM LEVEL 8.1 MG/DL (8.8-10.2); CARBON DIOXIDE LEVEL 27 MEQ/L (21-32); CHLORIDE LEVEL 108 MEQ/L (98-107); CREATININE FOR GFR 1.34 MG/DL (0.70-1.30); GLOMERULAR FILTRATION RATE 55.8 (>42); GLUCOSE, FASTING 131 MG/DL (70-100); MAGNESIUM LEVEL 1.8 MG/DL (1.8-2.4); POTASSIUM SERUM 3.6 MEQ/L (3.5-5.1); SODIUM LEVEL 142 MEQ/L (136-145); TOTAL PROTEIN 6.3 GM/DL (6.4-8.2); TROPONIN I < 0.02 NG/ML (< 0.10)
[2019-06-14] MEDS: SLF 3 ML SYR IV SCH ×3 (05:59→20:19)
[2019-06-14 06:00] VITALS: BP 120/64
[2019-06-14 08:00] VITALS: BP 130/70
[2019-06-14] MEDS: DOCUSATE SODIUM 100 MG CAP PO SCH ×2 (09:00→20:24)
[2019-06-14] MEDS: ATENOLOL 50 MG TAB PO SCH (09:18)
[2019-06-14] MEDS: CHLORTHALIDONE 25 MG TAB PO SCH (09:18)
[2019-06-14] MEDS: VITAMIN D 1,000 INTERNATIONAL UNITS TABLET PO SCH (09:18)
[2019-06-14] MEDS: ASCORBIC ACID 500 MG TAB PO SCH (09:19)
[2019-06-14] MEDS: ENOXAPARIN 100MG/1ML SYRINGE (J1650) SC SCH ×2 (09:19→20:18)
[2019-06-14] MEDS: PANTOPRAZOLE 40MG TAB (PROTONIX) PO SCH (09:19)
--- NOTE | 2019-06-14 10:51 | ECGEPIP ---
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
[2019-06-14 12:00] VITALS: BP 138/68
[2019-06-14 16:00] VITALS: BP 134/62
--- NOTE | 2019-06-14 17:47 | IPNPDOC ---
Text Note Date of Service The patient was seen on 06/14/19. NOTE SUBJECTIVE: Mr. Ruggiero is admitted with new onset atrial fibrillation with rapid ventricular response. Rate control is improving. He is not having any remarkable chest pain or shortness of breath. OBJECTIVE: Please see vital signs below Physical exam: HENT: Neck is supple, no adenopathy or thyromegaly, oral mucosa is moist. Cardiovascular exam. Rate is irregular and slightly accelerated, no appreciable murmur. Abdomen: Soft, nontender, nondistended. Extremities: No notable peripheral edema, pedal pulses are palpable Neuro: No focal neuromotor or sensory deficit ASSESSMENT/PLAN: 1. New onset atrial fibrillation. The patient presented with rapid ventricular response. The patient was initially treated with Cardizem. Review of the medical record shows that at baseline the patient is on atenolol. We will restore this to his medication regimen for rate control and adjust as needed. We hope to transition the patient off of oral Cardizem. The patient is currently on anticoagulation with Lovenox and we will transition him to oral anticoagulation. The patient has a significant family history of heart disease. Additionally, he admits to prior history of TIAs. Consequently we have discussed the patient's risk of stroke and the importance of anticoagulation after discharge. Patient can be discharged to home once his rate is fully controlled and we have his echocardiogram report. VS,Yesenia, I+O VS, Yesenia, I+O Laboratory Tests 06/13/19 17:39 Red Blood Count 4.53, Mean Corpuscular Volume 89.0, Mean Corpuscular Hemoglobin 30.0, Mean Corpuscular Hemoglobin Concent 33.7, Red Cell Distribution Width 12.8, Neutrophils (%) (Auto) 62.3, Lymphocytes (%) (Auto) 23.9 L, Monocytes (%) (Auto) 9.3 H, Eosinophils (%) (Auto) 3.0, Basophils (%) (Auto) 1.3 H, Neutrophils # (Auto) 3.9, Lymphocytes # (Auto) 1.5, Monocytes # (Auto) 0.6, Eosinophils # (Auto) 0.2, Basophils # (Auto) 0.1, Calcium Level 8.1 L, Total Creatine Kinase 169 06/14/19 01:34 06/14/19 04:55 Red Blood Count 4.46, Mean Corpuscular Volume 89.7, Mean Corpuscular Hemoglobin 29.4, Mean Corpuscular Hemoglobin Concent 32.8, Red Cell Distribution Width 12.7, Calcium Level 8.1 L, Aspartate Amino Transf (AST/SGOT) 17, Alanine Aminotransferase (ALT/SGPT) 19, Alkaline Phosphatase 90, Total Bilirubin 0.2, Total Protein 6.3 L, Albumin 3.2 Vital Signs Date Time Temp Pulse Resp B/P (MAP) Pulse Ox O2 Delivery O2 Flow Rate FiO2 06/14/19 16:00 96.8 60 18 134/62 (86) 98 06/13/19 21:22 Room Air I&O- Last 24 Hours up to 6 AM 06/14/19 06:00 Intake Total 300 ml Output Total 525 ml Balance -225 ml JOSUE BRADSHAW MD Jun 14, 2019 17:47
[2019-06-14 20:25] VITALS: BP 137/62
[2019-06-15] VITALS: BP 150/67
[2019-06-15 04:00] VITALS: BP 129/71
[2019-06-15] MEDS: SLF 3 ML SYR IV SCH (04:54)
--- NOTE | 2019-06-15 07:09 | ECHO ---
DATE OF STUDY: 06/14/2019 REFERRING PHYSICIAN: Dr. Watson INDICATION: Cardiac dysrhythmia. HEIGHT: 178 cm. WEIGHT: 88 kg. DIMENSIONS: IVS: 1.2 LV: 4.3 LVPW: 1.1 LA: 3.7 Aorta: 3.6 IVC: 1.0 FINDINGS: The study is of acceptable technical quality. The patient is in atrial fibrillation with variable, but for the most part controlled rate. Left ventricle is normal size and has normal systolic function, I estimate left ventricle ejection fraction (LVEF) 65-70%. I do not appreciate any distinct wall motion abnormalities. Right ventricle is also normal size and systolic function. Both atria appear at least mildly enlarged. All four cardiac valves are reasonably well seen and appeared normal. No pericardial effusion is noted. Inferior vena cava is normal size. Aortic root is normal. Aortic arch and abdominal aorta were not well seen. Doppler interrogation of aortic valve reveals no significant stenosis or insufficiency. There is trace mitral and tricuspid insufficiency. Calculated pulmonary artery pressure is within normal limits. Pulmonic valve is functionally competent. Mitral inflow pattern and tissue Doppler imaging of mitral annulus is inconclusive for assessment of diastolic function due to underlying atrial fibrillation, but tissue Doppler velocities of mitral annulus are relatively high arguing against advanced diastolic dysfunction. CONCLUSIONS: 1. Study is of good technical quality. 2. Normal LV size and systolic function. 3. No significant valvular disease. 4. Normal central venous pressure. 5. Probably normal pulmonary artery pressure. COMMENT: Subacute bacterial endocarditis (SBE) prophylaxis is not recommended.
[2019-06-15 08:00] VITALS: BP 144/74
[2019-06-15] MEDS: CHLORTHALIDONE 25 MG TAB PO SCH (10:03)
[2019-06-15] MEDS: ASCORBIC ACID 500 MG TAB PO SCH (10:03)
[2019-06-15] MEDS: VITAMIN D 1,000 INTERNATIONAL UNITS TABLET PO SCH (10:03)
[2019-06-15] MEDS: DOCUSATE SODIUM 100 MG CAP PO SCH (10:03)
[2019-06-15 10:04] VITALS: BP 144/74
[2019-06-15] MEDS: ATENOLOL 50 MG TAB PO SCH (10:04)
[2019-06-15] MEDS: ENOXAPARIN 100MG/1ML SYRINGE (J1650) SC SCH (10:04)
[2019-06-15] MEDS: PANTOPRAZOLE 40MG TAB (PROTONIX) PO SCH (10:04)
[2019-06-15 12:00] VITALS: BP 142/76
[2019-06-15] MEDS ORDERED: ATEN50TA9 PO (12:30)
[2019-06-15] MEDS ORDERED: ELIQ5TAB PO (12:30)
--- NOTE | 2019-06-16 09:52 | ECGEPIP ---
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
== END 2019-06-15 14:40 | disposition home or self-care (01) | DRG 310 ==
LOC: M ED 17:32 → M ED INP 17:33 → M PCU 23:37 → OBSVTOIN 06-14 09:47
PROVIDERS: ADMIT Internal Medicine; ATTEND Internal Medicine
DX: I48.91 Unspecified atrial fibrillation (principal); I10 Essential (primary) hypertension; Z79.899 Other long term (current) drug therapy; Z88.1 Allergy status to other antibiotic agents; Z88.6 Allergy status to analgesic agent; Z98.49 Cataract extraction status, unspecified eye; Z87.891 Personal history of nicotine dependence; Z87.11 Personal history of peptic ulcer disease

== ENCOUNTER 2019-07-06 10:13 | Emergency (ER) | payer MEDICARE ==
[~2019-07-06] VITALS: Ht 177.8 cm; Wt 87.7 kg
[~2019-07-06 10:13] MED LIST changes: +ELIQ5TAB PO; -RIZA10TA4 PO; +RIZA10TA58 PO; +VITA400C53 PO
[2019-07-06] MEDS ORDERED: METOPROLOL TART 25 MG TABLET PO ONE (10:45)
[2019-07-06 10:47] VITALS: BP 138/62
[2019-07-06 10:47] LABS: BASO # 0.1 10^3/uL (0.0-0.2); BASO % 0.9 % (0.0-1.0); EOS # 0.3 10^3/uL (0.0-0.5); EOS % 4.1 % (0.0-3.0); HEMATOCRIT 45.5 % (42.0-52.0); HEMOGLOBIN 14.5 g/dl (13.5-17.5); LYMPH # 1.6 10^3/uL (1.5-5.0); LYMPH % 24.5 % (24.0-44.0); MEAN CORPUSCULAR HEMOGLOBIN 29.1 pg (27.0-33.0); MEAN CORPUSCULAR HGB CONC 31.9 g/dl (32.0-36.5); MEAN CORPUSCULAR VOLUME 91.4 fl (80.0-96.0); MONO # 0.5 10^3/uL (0.0-0.8); MONO % 7.5 % (0.0-5.0); NEUTROPHILS % 62.5 % (36.0-66.0); PLATELET COUNT, AUTOMATED 219 10^3/uL (150-450); RED BLOOD COUNT 4.98 10^6/uL (4.30-6.10); WHITE BLOOD COUNT 6.4 10^3/uL (4.0-10.0)
--- NOTE | 2019-07-06 10:53 | REP ---
Clinical: Acute chest pain . Comparison: 06/13/2019 . Findings: The mediastinum and cardiac silhouette are stable and within normal limits for portable technique. The lung hector are clear without acute consolidation, effusion, or pneumothorax. Skeletal structures are intact. Impression: No acute cardiopulmonary process appreciated. Electronically Signed by Giovani Lemos MD 07/06/2019 10:44 A
[2019-07-06 11:20] LABS: BLOOD UREA NITROGEN 29 MG/DL (7-18); CALCIUM LEVEL 8.8 MG/DL (8.8-10.2); CARBON DIOXIDE LEVEL 28 MEQ/L (21-32); CHLORIDE LEVEL 106 MEQ/L (98-107); CK-MB VALUE MASS 1.4 NG/ML (<3.6); CPK CREATINE PHOSPHOKINASE 76 U/L (39-308); CREATININE FOR GFR 1.39 MG/DL (0.70-1.30); GLOMERULAR FILTRATION RATE 53.5 (>42); GLUCOSE, FASTING 173 MG/DL (70-100); MB/CK RELATIVE INDEX 1.84 (< OR =4); POTASSIUM SERUM 4.2 MEQ/L (3.5-5.1); SODIUM LEVEL 140 MEQ/L (136-145); TROPONIN I < 0.02 NG/ML (< 0.10)
[2019-07-06] MEDS ORDERED: MAGNESIUM CHLORIDE 64 MG TABCR (SLO MAG) PO ONE (11:30)
[2019-07-06] MEDS ORDERED: ATEN50TA2 PO (12:32)
[2019-07-06] MEDS ORDERED: ATEN25TA PO (12:32)
[2019-07-06] MEDS ORDERED: CHLO125TA PO (12:32)
[2019-07-06 12:39] VITALS: BP 142/63
--- NOTE | 2019-07-08 11:34 | ECGEPIP ---
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
== END 2019-07-06 12:48 | disposition home or self-care (01) ==
LOC: M ED 10:13
DX: I48.91 Unspecified atrial fibrillation (principal); E11.9 Type 2 diabetes mellitus without complications; I10 Essential (primary) hypertension; Z79.899 Other long term (current) drug therapy; Z79.01 Long term (current) use of anticoagulants; Z88.1 Allergy status to other antibiotic agents; Z88.8 Allergy status to other drugs, medicaments and biological substances

== ENCOUNTER 2020-05-08 17:32 | Emergency (ER) | payer MEDICARE ==
[~2020-05-08] VITALS: Ht 172.7 cm; Wt 86.4 kg
[~2020-05-08 17:32] MED LIST changes: +ATEN25TA PO; +CHLO125TA PO; +PANT40TA29 PO; -PANT40TA3 PO; +VITA-243 PO
[2020-05-08] MEDS ORDERED: ATEN100T PO (17:54)
[2020-05-08] MEDS ORDERED: VITA100065 PO (17:54)
[2020-05-08] MEDS: METOPROLOL 5 MG/5 ML VIAL IV SCH ×6 (18:01→22:13)
[2020-05-08 18:14] LABS: BASO # 0.1 10^3/uL (0.0-0.2); BASO % 0.8 % (0.0-1.0); EOS # 0.2 10^3/uL (0.0-0.5); EOS % 2.3 % (0.0-3.0); HEMATOCRIT 41.5 % (42.0-52.0); HEMOGLOBIN 13.5 g/dl (13.5-17.5); LYMPH # 1.5 10^3/uL (1.5-5.0); LYMPH % 17.9 % (24.0-44.0); MEAN CORPUSCULAR HEMOGLOBIN 29.3 pg (27.0-33.0); MEAN CORPUSCULAR HGB CONC 32.5 g/dl (32.0-36.5); MEAN CORPUSCULAR VOLUME 90.2 fl (80.0-96.0); MONO # 0.6 10^3/uL (0.0-0.8); MONO % 7.7 % (0.0-5.0); NEUTROPHILS # 5.9 10^3/uL (1.5-8.5); NEUTROPHILS % 70.9 % (36.0-66.0); PLATELET COUNT, AUTOMATED 207 10^3/uL (150-450); WHITE BLOOD COUNT 8.3 10^3/uL (4.0-10.0)
[2020-05-08 18:32] LABS: CALCIUM LEVEL 8.9 MG/DL (8.8-10.2); CREATININE FOR GFR 1.64 MG/DL (0.70-1.30); GLOMERULAR FILTRATION RATE 44.2 (>42); POTASSIUM SERUM 4.1 MEQ/L (3.5-5.1)
--- NOTE | 2020-05-08 18:32 | REPVR ---
PROCEDURE INFORMATION: Exam: XR Chest, 1 View Exam date and time: 05/08/2020 5:35 PM Age: 74 years old Clinical indication: Chest pain TECHNIQUE: Imaging protocol: XR of the chest Views: 1 view. COMPARISON: CR PORTABLE CHEST X-RAY 07/06/2019 10:40 AM FINDINGS: Lungs: There is an 8 mm round density at the left mid lung field and probably nipple shadow. I would recommend obtaining films with nipple markers for clarification and to exclude any possibility of a nodule. There is no evidence of infiltrate. Pleural space: There is no evidence of pneumothorax or pleural effusion. Heart/Mediastinum: There is some prominence of the left side of the heart. Bones/joints: Unremarkable. IMPRESSION: 8 mm round density left lower lung field. This may be nipple shadow and the patient should have films with nipple markers for clarification and to exclude a nodule. Electronically signed by: Carloz Salas On 05/08/2020 18:32:40 PM
[2020-05-08 18:42] LABS: ALBUMIN 3.9 GM/DL (3.2-5.2); ALT/SGPT 95 U/L (12-78); BILIRUBIN,DIRECT 0.3 MG/DL (0.0-0.2); BILIRUBIN,TOTAL 0.7 MG/DL (0.2-1.0); CK-MB VALUE MASS < 1.0 NG/ML (<3.6); CPK CREATINE PHOSPHOKINASE 78 U/L (39-308); LIPASE 116 U/L (73-393); MB/CK RELATIVE INDEX 1.28 (< OR =4); TOTAL PROTEIN 7.3 GM/DL (6.4-8.2); TROPONIN I < 0.02 NG/ML (< 0.10)
--- NOTE | 2020-05-08 19:57 | REPVR ---
PROCEDURE INFORMATION: Exam: XR Chest, 2 Views Exam date and time: 05/08/2020 7:41 PM Age: 74 years old Clinical indication: Other: With nipple markers ? nodule vs nipple; Additional info: With nipple markers - ? nodule vs nipple TECHNIQUE: Imaging protocol: XR of the chest Views: 2 views. COMPARISON: CR PORTABLE CHEST X-RAY 05/08/2020 6:03 PM FINDINGS: Lungs: Small round density seen at the left mid lung field corresponds to nipple shadow and there is no evidence of nodule. The lungs appear clear. Pleural space: Unremarkable. No pleural effusion. No pneumothorax. Heart/Mediastinum: Unremarkable. No cardiomegaly. Bones/joints: Degenerative changes noted at the right and left AC joint. IMPRESSION: No evidence of nodule. Electronically signed by: Carloz Salas On 05/08/2020 19:57:23 PM
[2020-05-08] MEDS ORDERED: METOPROLOL TART 50 MG TAB PO ONE (21:30)
[2020-05-08 22:13] VITALS: BP 130/60
[2020-05-09 01:00] LABS: CK-MB VALUE MASS < 1.0 NG/ML (<3.6); CPK CREATINE PHOSPHOKINASE 60 U/L (39-308); MAGNESIUM LEVEL 1.5 MG/DL (1.8-2.4); MB/CK RELATIVE INDEX 1.67 (< OR =4); TROPONIN I < 0.02 NG/ML (< 0.10)
[2020-05-09] MEDS ORDERED: MAG SULF 1GM/100ML (MAG RUN) 1 GM in IV 1 EA IV ONE ×2 (01:15→02:45)
[2020-05-09] MEDS ORDERED: SLOWTAB2 PO (03:54)
[2020-05-09 04:01] VITALS: BP 164/97
--- NOTE | 2020-05-10 15:03 | ED PDOC ---
Post-Departure Follow-Up jordan donato faxed formalreport of cxr forfu Nancy Rosa MD May 10, 2020 15:03
--- NOTE | 2020-05-20 16:33 | ECGEPIP ---
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
--- NOTE | 2020-05-22 14:42 | ECGEPIP ---
ATRIAL FIBRILLATION WITH RAPID VENTRICULAR RESPONSE ABNORMAL RHYTHM ECG SEE SCANNED DOWNTIME REPORT MTDD
== END 2020-05-09 04:20 | disposition home or self-care (01) ==
LOC: M ED 17:32
DX: I48.91 Unspecified atrial fibrillation (principal); E83.42 Hypomagnesemia; I10 Essential (primary) hypertension; E78.5 Hyperlipidemia, unspecified; Z79.899 Other long term (current) drug therapy; Z79.01 Long term (current) use of anticoagulants; Z88.1 Allergy status to other antibiotic agents; Z88.8 Allergy status to other drugs, medicaments and biological substances; Z87.891 Personal history of nicotine dependence
CPT/HCPCS: 36415; 71045; 71046; 80048; 80076; 82550; 82553; 83690; 83735; 84443; 84484; 85025; 93005; 93041; 94760; 96365; 96366; 96375; 96376; 99291; J3475

== ENCOUNTER 2021-02-02 17:31 | Emergency (ER) | payer MEDICARE ==
[~2021-02-02] VITALS: Ht 177.8 cm; Wt 85.9 kg
[~2021-02-02 17:31] MED LIST changes: +ASPI-569 PO; -ASPI81TAEC PO; +ATEN100T PO; +SLOWTAB2 PO; +VITA100065 PO
[2021-02-02 18:18] LABS: BASO % 0.4 % (0.0-1.0); EOS # 0.1 10^3/uL (0.0-0.5); EOS % 1.1 % (0.0-3.0); HEMATOCRIT 41.9 % (42.0-52.0); HEMOGLOBIN 13.4 g/dl (13.5-17.5); LYMPH # 0.5 10^3/uL (1.5-5.0); LYMPH % 10.5 % (24.0-44.0); MEAN CORPUSCULAR HEMOGLOBIN 28.1 pg (27.0-33.0); MEAN CORPUSCULAR VOLUME 87.8 fl (80.0-96.0); MONO # 0.5 10^3/uL (0.0-0.8); MONO % 11.4 % (2.0-8.0); NEUTROPHILS # 3.4 10^3/uL (1.5-8.5); NEUTROPHILS % 76.2 % (36.0-66.0); PLATELET COUNT, AUTOMATED 161 10^3/uL (150-450); RED BLOOD COUNT 4.77 10^6/uL (4.30-6.10); WHITE BLOOD COUNT 4.5 10^3/uL (4.0-10.0)
[2021-02-02 18:44] LABS: ALBUMIN 3.5 GM/DL (3.2-5.2); ALT/SGPT 16 U/L (12-78); BILIRUBIN,DIRECT 0.2 MG/DL (0.0-0.2); BILIRUBIN,TOTAL 0.5 MG/DL (0.2-1.0); BLOOD UREA NITROGEN 22 MG/DL (7-18); CALCIUM LEVEL 8.5 MG/DL (8.8-10.2); CARBON DIOXIDE LEVEL 26 MEQ/L (21-32); CHLORIDE LEVEL 105 MEQ/L (98-107); CK-MB VALUE MASS < 1.0 NG/ML (<3.6); CPK CREATINE PHOSPHOKINASE 48 U/L (39-308); CREATININE FOR GFR 1.45 MG/DL (0.70-1.30); GLOMERULAR FILTRATION RATE 50.8 (>42); GLUCOSE, FASTING 113 MG/DL (70-100); LIPASE 136 U/L (73-393); MB/CK RELATIVE INDEX 2.08 (< OR =4); POTASSIUM SERUM 4.1 MEQ/L (3.5-5.1); SODIUM LEVEL 139 MEQ/L (136-145); TOTAL PROTEIN 6.7 GM/DL (6.4-8.2); TROPONIN I < 0.02 NG/ML (< 0.10)
--- NOTE | 2021-02-02 18:49 | REP ---
INDICATION: fever COMPARISON: 05/08/2020 TECHNIQUE: Portable AP view of the chest FINDINGS: The mediastinum and cardiac silhouette are stable and within normal limits for portable technique. The lung hector are clear without acute consolidation, effusion, or pneumothorax. Skeletal structures are intact. IMPRESSION: No acute cardiopulmonary process appreciated. <Electronically signed by Giovani Lemos > 02/02/21 0327
[2021-02-02 18:53] LABS: RSV AMPLIFICATION NEGATIVE (NEGATIVE)
[2021-02-02 19:25] LABS: C REACTIVE PROTEIN QUANTITATIV 2.98 MG/DL (0.00-0.30); FERRITIN 471 NG/ML (26-388); LDH LACTATE DEHYDROGENASE 235 U/L (87-241)
[2021-02-02 20:32] VITALS: BP 156/79
== END 2021-02-02 20:36 | disposition left against medical advice (07) ==
LOC: M ED 17:31
DX: U07.1 COVID-19 (principal); I48.91 Unspecified atrial fibrillation; I10 Essential (primary) hypertension; Z79.899 Other long term (current) drug therapy; Z88.8 Allergy status to other drugs, medicaments and biological substances; Z88.1 Allergy status to other antibiotic agents; Z87.19 Personal history of other diseases of the digestive system

== ENCOUNTER 2021-12-08 18:16 | Emergency (ER) | payer MEDICARE ==
[~2021-12-08] VITALS: Ht 177.8 cm; Wt 93.4 kg
[2021-12-08] MEDS ORDERED: ZINC1TAB2 PO (18:42)
[2021-12-08 20:45] LABS: BASO # 0.1 10^3/uL (0.0-0.2); EOS # 0.7 10^3/uL (0.0-0.5); EOS % 8.8 % (0.0-3.0); HEMOGLOBIN 13.6 g/dl (13.5-17.5); LYMPH % 25.8 % (24.0-44.0); MEAN CORPUSCULAR HEMOGLOBIN 29.6 pg (27.0-33.0); MEAN CORPUSCULAR HGB CONC 33.2 g/dl (32.0-36.5); MEAN CORPUSCULAR VOLUME 89.3 fl (80.0-96.0); MONO # 0.8 10^3/uL (0.0-0.8); MONO % 9.8 % (2.0-8.0); NEUTROPHILS # 4.3 10^3/uL (1.5-8.5); NEUTROPHILS % 54.2 % (36.0-66.0); PLATELET COUNT, AUTOMATED 188 10^3/uL (150-450); RED BLOOD COUNT 4.59 10^6/uL (4.30-6.10); WHITE BLOOD COUNT 7.9 10^3/uL (4.0-10.0)
[2021-12-08 21:15] LABS: ERYTHROCYTE SEDIMENTATION RATE 7 mm/hr (0-20)
[2021-12-08 22:46] VITALS: BP 175/88
== END 2021-12-08 23:17 | disposition home or self-care (01) ==
LOC: M ED 18:16
DX: R22.32 Localized swelling, mass and lump, left upper limb (principal); T22.012A Burn of unspecified degree of left forearm, initial encounter; X12.XXXA Contact with other hot fluids, initial encounter; Y92.89 Other specified places as the place of occurrence of the external cause; I10 Essential (primary) hypertension; K21.9 Gastro-esophageal reflux disease without esophagitis; Z86.73 Personal history of transient ischemic attack (TIA), and cerebral infarction without residual deficits; Z79.899 Other long term (current) drug therapy; Z88.1 Allergy status to other antibiotic agents; Z88.8 Allergy status to other drugs, medicaments and biological substances

== ENCOUNTER 2021-12-13 09:32 | Emergency (ER) | payer MEDICARE ==
[~2021-12-13] VITALS: Ht 177.8 cm; Wt 91.9 kg
[~2021-12-13 09:32] MED LIST changes: +ZINC1TAB2 PO
[2021-12-13 10:41] LABS: C REACTIVE PROTEIN QUANTITATIV 0.3 MG/DL (0.00-0.30); CALCIUM LEVEL 8.5 MG/DL (8.8-10.2); CREATININE FOR GFR 1.51 MG/DL (0.70-1.30); GLOMERULAR FILTRATION RATE 48.3 (>42); POTASSIUM SERUM 4.9 MEQ/L (3.5-5.1)
[2021-12-13 11:22] LABS: BASO # 0.1 10^3/uL (0.0-0.2); EOS # 1.1 10^3/uL (0.0-0.5); EOS % 15.4 % (0.0-3.0); HEMATOCRIT 43.4 % (42.0-52.0); LYMPH # 1.6 10^3/uL (1.5-5.0); LYMPH % 22.4 % (24.0-44.0); MEAN CORPUSCULAR HEMOGLOBIN 29.2 pg (27.0-33.0); MEAN CORPUSCULAR HGB CONC 32.3 g/dl (32.0-36.5); MEAN CORPUSCULAR VOLUME 90.6 fl (80.0-96.0); MONO # 0.6 10^3/uL (0.0-0.8); MONO % 8.2 % (2.0-8.0); NEUTROPHILS # 3.8 10^3/uL (1.5-8.5); NEUTROPHILS % 52.4 % (36.0-66.0); PLATELET COUNT, AUTOMATED 175 10^3/uL (150-450); RED BLOOD COUNT 4.79 10^6/uL (4.30-6.10); WHITE BLOOD COUNT 7.2 10^3/uL (4.0-10.0)
[2021-12-13 11:43] LABS: ERYTHROCYTE SEDIMENTATION RATE 5 mm/hr (0-20)
[2021-12-13] MEDS ORDERED: NS 1,000 ML IV ONE (12:00)
[2021-12-13] MEDS ORDERED: BACITRACIN OINTMENT 30GM TUBE TOP ONE (12:30)
[2021-12-13] MEDS ORDERED: BACI500O8 TOP (12:53)
[2021-12-13] MEDS ORDERED: [UNRECOGNIZED DRUG - CODE] XX (12:53)
[2021-12-13 13:37] VITALS: BP 137/73
[2021-12-13] MEDS ORDERED: diphenhydrAMINE 25MG CAP PO ONE (13:40)
== END 2021-12-13 13:35 | disposition home or self-care (01) ==
LOC: M ED 09:32
DX: T23.202D Burn of second degree of left hand, unspecified site, subsequent encounter (principal); X58.XXXD Exposure to other specified factors, subsequent encounter; Y92.89 Other specified places as the place of occurrence of the external cause; I12.9 Hypertensive chronic kidney disease with stage 1 through stage 4 chronic kidney disease, or unspecified chronic kidney disease; N18.9 Chronic kidney disease, unspecified; I48.91 Unspecified atrial fibrillation; G43.909 Migraine, unspecified, not intractable, without status migrainosus; K21.9 Gastro-esophageal reflux disease without esophagitis; Z86.73 Personal history of transient ischemic attack (TIA), and cerebral infarction without residual deficits; Z79.899 Other long term (current) drug therapy; Z88.1 Allergy status to other antibiotic agents; Z88.8 Allergy status to other drugs, medicaments and biological substances

== ENCOUNTER 2022-07-28 03:46 | Emergency (ER) | payer MEDICARE ==
[~2022-07-28] VITALS: Ht 177.8 cm; Wt 81.8 kg
[~2022-07-28 03:46] MED LIST changes: +BACI500O8 TOP; +[UNRECOGNIZED DRUG - CODE] XX
[2022-07-28 04:18] LABS: HEMATOCRIT 38.8 % (42.0-52.0); MEAN CORPUSCULAR HEMOGLOBIN 28.3 pg (27.0-33.0); MEAN CORPUSCULAR HGB CONC 30.9 g/dl (32.0-36.5); MEAN CORPUSCULAR VOLUME 91.5 fl (80.0-96.0); PLATELET COUNT, AUTOMATED 169 10^3/uL (150-450); RED BLOOD COUNT 4.24 10^6/uL (4.30-6.10); WHITE BLOOD COUNT 8.8 10^3/uL (4.0-10.0)
[2022-07-28] MEDS ORDERED: ONDANSETRON 4MG 2ML VIAL IV ONE (04:50)
[2022-07-28] MEDS ORDERED: MORPHINE 4 MG/ML 1ML VIAL/SYRINGE IV ONE ×2 (04:50→06:30)
[2022-07-28 04:53] LABS: BILIRUBIN,TOTAL 0.5 MG/DL (0.3-1.2); CALCIUM LEVEL 8.6 MG/DL (8.3-10.6); CREATININE FOR GFR 1.85 MG/DL (0.70-1.30); GLOMERULAR FILTRATION RATE 38.1 (>42); POTASSIUM SERUM 4.1 MMOL/L (3.5-5.1); TOTAL PROTEIN 6.6 G/DL (5.7-8.2)
[2022-07-28] MEDS ORDERED: GI COCKTAIL 50ML BTL(HYOSCYAMINE/MAALOX/LIDOCAINE VISCOUS)(1:3:1) PO ONE (06:30)
[2022-07-28] MEDS ORDERED: hydrALAZINE 20MG/ML 1ML VIAL (J0360 PER 20MG) IV STA ×2 (06:44→06:46)
[2022-07-28] MEDS ORDERED: atenoloL 50 MG TAB PO ONE (06:50)
[2022-07-28 06:55] VITALS: BP 215/96
[2022-07-28] MEDS ORDERED: NS 500 ML IV ONE (07:00)
[2022-07-28 07:30] VITALS: BP 168/81
[2022-07-28] MEDS ORDERED: REGL5TAB2 PO (07:44)
== END 2022-07-28 08:05 | disposition home or self-care (01) ==
LOC: M ED 03:46
DX: K31.84 Gastroparesis (principal); I10 Essential (primary) hypertension; R91.1 Solitary pulmonary nodule; I51.7 Cardiomegaly; I25.10 Atherosclerotic heart disease of native coronary artery without angina pectoris; K80.20 Calculus of gallbladder without cholecystitis without obstruction; K57.30 Diverticulosis of large intestine without perforation or abscess without bleeding; R07.89 Other chest pain; E78.5 Hyperlipidemia, unspecified; K21.9 Gastro-esophageal reflux disease without esophagitis; Z87.11 Personal history of peptic ulcer disease; J44.9 Chronic obstructive pulmonary disease, unspecified; Z98.61 Coronary angioplasty status; Z79.899 Other long term (current) drug therapy; Z88.6 Allergy status to analgesic agent; Z88.8 Allergy status to other drugs, medicaments and biological substances; Z88.1 Allergy status to other antibiotic agents
CPT/HCPCS: 71045; 71250; 74176; 80053; 84484; 85027; 87486; 87581; 87633; 87798; 93005; 96361; 96374; 96375; 99284; J0360; J2270; J2405

== ENCOUNTER 2022-11-05 13:21 | Emergency (ER) | payer MEDICARE ==
[~2022-11-05] VITALS: Ht 175.3 cm; Wt 84.1 kg
[2022-11-05 13:21] VITALS: BP 168/86
[~2022-11-05 13:21] MED LIST changes: +REGL5TAB2 PO
[2022-11-05] MEDS ORDERED: METOCLOPRAMIDE INJ 10MG/2ML VIAL IV ONE (13:50)
[2022-11-05] MEDS ORDERED: GI COCKTAIL 50ML BTL(HYOSCYAMINE/MAALOX/LIDOCAINE VISCOUS)(1:3:1) PO ONE (13:50)
[2022-11-05] MEDS ORDERED: NS 1,000 ML IV ONE (13:50)
[2022-11-05 14:05] LABS: BASO # 0.1 10^3/uL (0.0-0.2); BASO % 0.4 % (0.0-1.0); EOS # 0.1 10^3/uL (0.0-0.5); EOS % 0.4 % (0.0-3.0); HEMATOCRIT 41.7 % (42.0-52.0); HEMOGLOBIN 13.2 g/dl (13.5-17.5); LYMPH # 0.8 10^3/uL (1.5-5.0); LYMPH % 5.7 % (24.0-44.0); MEAN CORPUSCULAR HGB CONC 31.7 g/dl (32.0-36.5); MEAN CORPUSCULAR VOLUME 88.3 fl (80.0-96.0); MONO # 1.4 10^3/uL (0.0-0.8); MONO % 10.8 % (2.0-8.0); NEUTROPHILS # 10.9 10^3/uL (1.5-8.5); NEUTROPHILS % 82.3 % (36.0-66.0); PLATELET COUNT, AUTOMATED 188 10^3/uL (150-450); RED BLOOD COUNT 4.72 10^6/uL (4.30-6.10); WHITE BLOOD COUNT 13.2 10^3/uL (4.0-10.0)
[2022-11-05 14:31] LABS: CK-MB VALUE MASS < 1.0 NG/ML (<3.6)
[2022-11-05 14:32] LABS: LIPASE 26 U/L (12-53)
[2022-11-05 14:34] LABS: ALBUMIN 3.9 G/DL (3.2-5.2); ALKALINE PHOSPHATASE 109 U/L (46-116); ALT/SGPT 19 U/L (7.0-40); AST/SGOT 16 U/L (<34); BILIRUBIN,DIRECT 0.5 MG/DL (<0.4); BILIRUBIN,TOTAL 1.3 MG/DL (0.3-1.2); BLOOD UREA NITROGEN 22 MG/DL (9-23); CALCIUM LEVEL 8.8 MG/DL (8.3-10.6); CARBON DIOXIDE LEVEL 28 MMOL/L (20-31); CHLORIDE LEVEL 101 MMOL/L (98-107); CREATININE FOR GFR 1.52 MG/DL (0.70-1.30); GLOMERULAR FILTRATION RATE 47.8 (>42); GLUCOSE, FASTING 128 MG/DL (74-106); POTASSIUM SERUM 4.3 MMOL/L (3.5-5.1); SODIUM LEVEL 136 MMOL/L (136-145); TOTAL PROTEIN 6.9 G/DL (5.7-8.2)
[2022-11-05 14:35] LABS: FREE T4 1.06 NG/DL (0.89-1.76); THYROID STIMULATING HORMONE 0.998 uIU/ML (0.55-4.78)
[2022-11-05 14:47] LABS: CPK CREATINE PHOSPHOKINASE 39 U/L (46-171); MB/CK RELATIVE INDEX 2.56 (< OR =4)
[2022-11-05] MEDS ORDERED: diphenhydrAMINE 50MG/ML VIAL IV ONE (15:25)
[2022-11-05] MEDS ORDERED: KETOROLAC 30 MG/ML 1ML VIAL IV ONE (15:25)
[2022-11-05] MEDS ORDERED: MAG SULF 1GM/100ML (MAG RUN) 1 GM in IV 1 EA IV ONE (15:25)
[2022-11-05] MEDS ORDERED: ISOVUE-370 76% 100ML VIAL As Ordered ONE (15:33)
[2022-11-05 16:12] LABS: CK-MB VALUE MASS < 1.0 NG/ML (<3.6)
[2022-11-05 16:13] LABS: CPK CREATINE PHOSPHOKINASE 34 U/L (46-171); MB/CK RELATIVE INDEX 2.94 (< OR =4)
[2022-11-05] MEDS ORDERED: AUGMENTIN 875 MG TAB PO ONE (19:05)
[2022-11-05] MEDS ORDERED: ONDA4TAB6 PO (19:07)
[2022-11-05] MEDS ORDERED: KETO10TAB PO (19:07)
[2022-11-05] MEDS ORDERED: AMOX875T2 PO (19:07)
[2022-11-05] MEDS ORDERED: NORCO 5/325MG TABLET (HOME DOSE PACK) PO ONE (19:20)
[2022-11-06] MEDS ORDERED: OMEGCAP4 PO (11:07)
[2022-11-06] MEDS ORDERED: VITA-259 PO (11:07)
[2022-11-06] MEDS ORDERED: VITA100093 PO (11:07)
[2022-11-06] MEDS ORDERED: VENTAER INH (11:07)
[2022-11-06] MEDS ORDERED: ZINC50TA4 PO (11:08)
== END 2022-11-05 20:32 | disposition home or self-care (01) ==
LOC: M ED 13:21
DX: G43.909 Migraine, unspecified, not intractable, without status migrainosus (principal); K81.9 Cholecystitis, unspecified; I48.91 Unspecified atrial fibrillation; I10 Essential (primary) hypertension; E78.5 Hyperlipidemia, unspecified; K21.9 Gastro-esophageal reflux disease without esophagitis; J44.9 Chronic obstructive pulmonary disease, unspecified; K27.9 Peptic ulcer, site unspecified, unspecified as acute or chronic, without hemorrhage or perforation; Z79.899 Other long term (current) drug therapy; Z87.891 Personal history of nicotine dependence; Z88.6 Allergy status to analgesic agent; Z88.1 Allergy status to other antibiotic agents

== ENCOUNTER 2022-11-06 09:12 | Inpatient (IN) | payer MEDICARE ==
[~2022-11-06] VITALS: Ht 175.3 cm; Wt 87.7 kg
[~2022-11-06 09:12] MED LIST changes: +AMOX875T2 PO; +KETO10TAB PO; +ONDA4TAB6 PO
[2022-11-06] MEDS ORDERED: NS 1,000 ML IV SCH ×3 (09:40→11:40)
[2022-11-06] MEDS ORDERED: ONDANSETRON 4MG 2ML VIAL IV ONE (09:40)
[2022-11-06] MEDS ORDERED: MORPHINE 4 MG/ML 1ML VIAL IV PRN (09:40)
[2022-11-06] MEDS ORDERED: PIPERACILLIN/TAZOBACTAM SOD 3.375 GM in D5W MINI-BAG PLUS 50 ML IV ONE (09:40)
[2022-11-06 10:15] LABS: BASO % 0.2 % (0.0-1.0); HEMATOCRIT 42.4 % (42.0-52.0); HEMOGLOBIN 13.4 g/dl (13.5-17.5); LYMPH % 5.5 % (24.0-44.0); MEAN CORPUSCULAR HEMOGLOBIN 27.9 pg (27.0-33.0); MEAN CORPUSCULAR HGB CONC 31.6 g/dl (32.0-36.5); MEAN CORPUSCULAR VOLUME 88.1 fl (80.0-96.0); MONO % 12.6 % (2.0-8.0); NEUTROPHILS # 15.2 10^3/uL (1.5-8.5); NEUTROPHILS % 80.8 % (36.0-66.0); PLATELET COUNT, AUTOMATED 181 10^3/uL (150-450); RED BLOOD COUNT 4.81 10^6/uL (4.30-6.10); WHITE BLOOD COUNT 18.8 10^3/uL (4.0-10.0)
[2022-11-06 10:36] LABS: MONO # 2.4 10^3/uL (0.0-0.8)
[2022-11-06 10:46] LABS: ALBUMIN 3.7 G/DL (3.2-5.2); BILIRUBIN,DIRECT 0.6 MG/DL (<0.4); BILIRUBIN,TOTAL 1.5 MG/DL (0.3-1.2); CALCIUM LEVEL 8.5 MG/DL (8.3-10.6); CREATININE FOR GFR 1.78 MG/DL (0.70-1.30); GLOMERULAR FILTRATION RATE 39.9 (>42); POTASSIUM SERUM 4.1 MMOL/L (3.5-5.1); TOTAL PROTEIN 6.7 G/DL (5.7-8.2)
[2022-11-06 10:50] LABS: RSV AMPLIFICATION NEGATIVE (NEGATIVE)
[2022-11-06] MEDS ORDERED: OMEGCAP4 PO (11:07)
[2022-11-06] MEDS ORDERED: VITA100093 PO (11:07)
[2022-11-06] MEDS ORDERED: VITA-259 PO (11:07)
[2022-11-06] MEDS ORDERED: VENTAER INH (11:07)
[2022-11-06] MEDS ORDERED: ZINC50TA4 PO (11:08)
[2022-11-06] MEDS ORDERED: HOME MED LIST COMPLETE! XX SCH (11:15)
[2022-11-06] MEDS ORDERED: NS 1,000 ML IV ONE (11:20)
[2022-11-06] MEDS ORDERED: MORPHINE 10 MG/ML 1ML VIAL IV ONE (11:35)
[2022-11-06] MEDS ORDERED: ONDANSETRON 4MG 2ML VIAL IV PRN (11:40)
[2022-11-06] MEDS: NITROGLYCERIN 2% OINT 1 GM *U/D* PKT TOP SCH (11:40)
[2022-11-06] MEDS ORDERED: MORPHINE 1MG/ML IN 0.9% NACL 100ML IV BAG IV PRN (11:40)
[2022-11-06] MEDS ORDERED: diphenhydrAMINE 50MG/ML VIAL IV PRN (11:40)
[2022-11-06] MEDS ORDERED: EPIDURAL/PCA KEYS XX PRN (11:40)
[2022-11-06] MEDS ORDERED: NALOXONE INJ 0.4MG/1ML VIAL IV PRN (11:40)
[2022-11-06] MEDS: METOPROLOL 5 MG/5 ML VIAL IV SCH ×5 (11:45→18:58)
[2022-11-06 13:01] VITALS: BP 168/78
[2022-11-06 13:37] VITALS: BP 168/76
[2022-11-06 15:51] VITALS: BP 164/92
[2022-11-06] MEDS: PIPERACILLIN/TAZOBACTAM SOD 3.375 GM in D5W MINI-BAG PLUS 50 ML IV SCH (17:57)
[2022-11-06 20:05] VITALS: BP 137/83
[2022-11-06] MEDS: D5W/0.45% SODIUM CHLORIDE 1,000 ML IV SCH (20:49)
[2022-11-07] MEDS ORDERED: ACETAMINOPHEN 650MG SUPP PR PRN (00:10)
[2022-11-07 00:17] VITALS: BP 138/86
[2022-11-07] MEDS: PIPERACILLIN/TAZOBACTAM SOD 3.375 GM in D5W MINI-BAG PLUS 50 ML IV SCH ×4 (00:44→18:45)
[2022-11-07] MEDS: METOPROLOL 5 MG/5 ML VIAL IV SCH ×4 (00:44→18:45)
[2022-11-07] MEDS ORDERED: ACETAMINOPHEN 1000MG 100ML IV BAG IV ONE (01:00)
[2022-11-07 04:16] VITALS: BP 151/72
[2022-11-07 04:48] LABS: BASO # 0.1 10^3/uL (0.0-0.2); BASO % 0.4 % (0.0-1.0); EOS # 0.1 10^3/uL (0.0-0.5); EOS % 1.1 % (0.0-3.0); HEMATOCRIT 36.1 % (42.0-52.0); HEMOGLOBIN 11.6 g/dl (13.5-17.5); LYMPH # 1.2 10^3/uL (1.5-5.0); MEAN CORPUSCULAR HEMOGLOBIN 28.6 pg (27.0-33.0); MEAN CORPUSCULAR HGB CONC 32.1 g/dl (32.0-36.5); MEAN CORPUSCULAR VOLUME 88.9 fl (80.0-96.0); PLATELET COUNT, AUTOMATED 139 10^3/uL (150-450); RED BLOOD COUNT 4.06 10^6/uL (4.30-6.10)
[2022-11-07 05:04] LABS: MONO # 1.6 10^3/uL (0.0-0.8)
[2022-11-07 05:07] LABS: INR 1.38; PARTIAL THROMBOPLASTIN TIME 34.2 SECONDS (24.8-34.2); PROTHROMBIN TIME 17.2 SECONDS (12.5-14.5)
[2022-11-07 05:08] LABS: ALBUMIN 2.6 G/DL (3.2-5.2); BILIRUBIN,TOTAL 1.4 MG/DL (0.3-1.2); CALCIUM LEVEL 7.5 MG/DL (8.3-10.6); CREATININE FOR GFR 1.92 MG/DL (0.70-1.30); GLOMERULAR FILTRATION RATE 36.5 (>42); POTASSIUM SERUM 4.2 MMOL/L (3.5-5.1); TOTAL PROTEIN 5.1 G/DL (5.7-8.2)
[2022-11-07] MEDS: D5W/0.45% SODIUM CHLORIDE 1,000 ML IV SCH ×2 (06:00→14:00)
[2022-11-07 07:26] VITALS: BP 129/79
[2022-11-07] MEDS: NITROGLYCERIN 2% OINT 1 GM *U/D* PKT TOP SCH (07:38)
[2022-11-07] MEDS ORDERED: fentaNYL 100 MCG/2 ML INJECTION As Ordered ONE (10:23)
[2022-11-07] MEDS ORDERED: propofoL 200 MG/20 ML VIAL As Ordered ONE (10:23)
[2022-11-07] MEDS ORDERED: MIDAZOLAM INJ 2MG/2ML VIAL As Ordered ONE (10:23)
[2022-11-07] MEDS ORDERED: LIDOCAINE 2% 100MG/5ML SDV (FOR ANES.) As Ordered ONE (10:23)
[2022-11-07] MEDS ORDERED: ROCURONIUM BROMIDE 50MG/5ML VIAL As Ordered ONE (10:23)
[2022-11-07] MEDS ORDERED: ONDANSETRON 4MG 2ML VIAL As Ordered ONE (10:24)
[2022-11-07] MEDS ORDERED: INDOCYANINE GREEN 25MG VIAL (IC-GREEN) As Ordered ONE (11:49)
[2022-11-07] MEDS ORDERED: LIDOCAINE 1% SDV 30ML VIAL As Ordered ONE (11:49)
[2022-11-07] MEDS ORDERED: BUPIVACAINE HCL 0.25% 30ML VIAL As Ordered ONE (11:50)
[2022-11-07] MEDS ORDERED: HYDROmorphone HCL 2MG/ML 1ML VIAL As Ordered ONE (14:36)
[2022-11-07] MEDS ORDERED: SUGAMMADEX SODIUM 500 MG/5 ML VIAL (BRIDION) As Ordered ONE (15:05)
[2022-11-07] MEDS ORDERED: oxyCODONE 5MG TAB PO PRN (15:45)
[2022-11-07] MEDS ORDERED: LR 1,000 ML IV SCH (15:45)
[2022-11-07] MEDS ORDERED: HYDROMORPHONE HCL 0.5 MG/ 0.5 ML SYRINGE IV PRN (15:45)
[2022-11-07] MEDS ORDERED: fentaNYL 100 MCG/2 ML INJECTION IV PRN (15:45)
[2022-11-07] MEDS ORDERED: ONDANSETRON 4MG 2ML VIAL IV PRN (15:45)
[2022-11-07] MEDS ORDERED: PERCOCET 5MG/325MG TAB PO PRN (16:00)
[2022-11-07] MEDS ORDERED: ACETAMINOPHEN TAB 650MG DOSE (2X325MG) PO PRN (16:00)
[2022-11-07 16:45] VITALS: BP 138/72
[2022-11-07 19:00] VITALS: BP 145/76
[2022-11-07] MEDS: PERCOCET 5MG/325MG TAB PO PRN (19:29)
[2022-11-07 23:55] VITALS: BP 140/82
[2022-11-08] VITALS (18 sets, daily range): BP systolic 150–176; BP diastolic 73–105; O2SAT 93–97
[2022-11-08] MEDS: PIPERACILLIN/TAZOBACTAM SOD 3.375 GM in D5W MINI-BAG PLUS 50 ML IV SCH ×5 (00:50→18:39)
[2022-11-08] MEDS: METOPROLOL 5 MG/5 ML VIAL IV SCH ×2 (00:50→06:48)
[2022-11-08] MEDS: PERCOCET 5MG/325MG TAB PO PRN ×3 (04:18→18:50)
[2022-11-08 05:59] LABS: BASO % 0.1 % (0.0-1.0); HEMATOCRIT 37.1 % (42.0-52.0); HEMOGLOBIN 11.3 g/dl (13.5-17.5); LYMPH # 0.4 10^3/uL (1.5-5.0); LYMPH % 5.9 % (24.0-44.0); MEAN CORPUSCULAR HEMOGLOBIN 28.2 pg (27.0-33.0); MEAN CORPUSCULAR HGB CONC 30.5 g/dl (32.0-36.5); MEAN CORPUSCULAR VOLUME 92.5 fl (80.0-96.0); MONO # 0.4 10^3/uL (0.0-0.8); MONO % 5.1 % (2.0-8.0); NEUTROPHILS # 6.4 10^3/uL (1.5-8.5); NEUTROPHILS % 88.5 % (36.0-66.0); PLATELET COUNT, AUTOMATED 147 10^3/uL (150-450); RED BLOOD COUNT 4.01 10^6/uL (4.30-6.10); WHITE BLOOD COUNT 7.3 10^3/uL (4.0-10.0)
[2022-11-08 06:50] LABS: ALBUMIN 2.6 G/DL (3.2-5.2); BILIRUBIN,TOTAL 0.7 MG/DL (0.3-1.2); CALCIUM LEVEL 7.4 MG/DL (8.3-10.6); CREATININE FOR GFR 1.72 MG/DL (0.70-1.30); GLOMERULAR FILTRATION RATE 41.5 (>42); POTASSIUM SERUM 4.7 MMOL/L (3.5-5.1)
[2022-11-08 09:20] LABS: TOTAL PROTEIN 5.4 G/DL (5.7-8.2)
[2022-11-08] MEDS ORDERED: ALBUTEROL 90 MCG/ACT 8GM HFA INHALER INH PRN (11:50)
[2022-11-08] MEDS: VITAMIN D 1,000 INTERNATIONAL UNITS TABLET PO SCH (13:20)
[2022-11-08] MEDS: PANTOPRAZOLE 40MG TAB (PROTONIX) PO SCH (13:20)
[2022-11-08] MEDS: atenoloL 50 MG TAB PO SCH (13:21)
[2022-11-08] MEDS ORDERED: amLODIPine 5 MG TAB PO ONE (20:25)
[2022-11-09] VITALS: BP 159/78
[2022-11-09] MEDS: PERCOCET 5MG/325MG TAB PO PRN (01:34)
[2022-11-09 04:00] VITALS: BP 159/73
[2022-11-09] MEDS: PIPERACILLIN/TAZOBACTAM SOD 3.375 GM in D5W MINI-BAG PLUS 50 ML IV SCH (05:50)
[2022-11-09 05:51] LABS: BASO % 0.2 % (0.0-1.0); EOS # 0.1 10^3/uL (0.0-0.5); EOS % 0.6 % (0.0-3.0); HEMATOCRIT 33.7 % (42.0-52.0); HEMOGLOBIN 10.4 g/dl (13.5-17.5); LYMPH # 1.1 10^3/uL (1.5-5.0); LYMPH % 11.3 % (24.0-44.0); MEAN CORPUSCULAR HEMOGLOBIN 27.5 pg (27.0-33.0); MEAN CORPUSCULAR HGB CONC 30.9 g/dl (32.0-36.5); MEAN CORPUSCULAR VOLUME 89.2 fl (80.0-96.0); MONO # 0.6 10^3/uL (0.0-0.8); MONO % 6.8 % (2.0-8.0); NEUTROPHILS # 7.5 10^3/uL (1.5-8.5); NEUTROPHILS % 80.8 % (36.0-66.0); PLATELET COUNT, AUTOMATED 171 10^3/uL (150-450); RED BLOOD COUNT 3.78 10^6/uL (4.30-6.10); WHITE BLOOD COUNT 9.3 10^3/uL (4.0-10.0)
[2022-11-09 06:18] LABS: ALBUMIN 2.5 G/DL (3.2-5.2); BILIRUBIN,TOTAL 0.4 MG/DL (0.3-1.2); CALCIUM LEVEL 7.7 MG/DL (8.3-10.6); CREATININE FOR GFR 1.77 MG/DL (0.70-1.30); GLOMERULAR FILTRATION RATE 40.1 (>42); POTASSIUM SERUM 4.2 MMOL/L (3.5-5.1); TOTAL PROTEIN 5.2 G/DL (5.7-8.2)
[2022-11-09] MEDS ORDERED: PERCOCET PO (07:51)
[2022-11-09] MEDS ORDERED: AMOX875T2 PO (07:51)
[2022-11-09] MEDS ORDERED: BACI1CAP PO (07:51)
[2022-11-09] MEDS ORDERED: SENO8.6T10 PO (07:51)
[2022-11-09] MEDS ORDERED: MILKSUS10 PO (07:51)
[2022-11-09 08:10] VITALS: BP 166/74
[2022-11-09] MEDS ORDERED: PERCOCET 5MG/325MG TAB PO ONE (09:05)
[2022-11-09] MEDS: VITAMIN D 1,000 INTERNATIONAL UNITS TABLET PO SCH (09:46)
[2022-11-09] MEDS: PANTOPRAZOLE 40MG TAB (PROTONIX) PO SCH (09:47)
[2022-11-09] MEDS: atenoloL 50 MG TAB PO SCH (09:47)
[2022-11-09] MEDS ORDERED: cloNIDine 0.1MG TABLET PO ONE (10:15)
[2022-11-09 10:51] VITALS: BP 166/74
[2022-11-09] MEDS ORDERED: AUGMENTIN 875 MG TAB PO ONE (11:00)
== END 2022-11-09 12:20 | disposition home health service (06) | DRG 854 ==
LOC: M ED 09:12 → M ED INP 11:19 → ENRESERV 11:39 → M PCU 12:47
PROVIDERS: ADMIT General Practice; ATTEND General Practice
PROC: 8E0W4CZ Robotic Assisted Procedure of Trunk Region, Percutaneous Endoscopic Approach (ICD-10-PCS; 2022-11-07)
PROC: 0FT44ZZ Resection of Gallbladder, Percutaneous Endoscopic Approach (ICD-10-PCS; principal; 2022-11-07 09:00)
DX: A41.9 Sepsis, unspecified organism (principal); K80.00 Calculus of gallbladder with acute cholecystitis without obstruction; I48.20 Chronic atrial fibrillation, unspecified; Z86.73 Personal history of transient ischemic attack (TIA), and cerebral infarction without residual deficits; I12.9 Hypertensive chronic kidney disease with stage 1 through stage 4 chronic kidney disease, or unspecified chronic kidney disease; N18.30 Chronic kidney disease, stage 3 unspecified; Z98.49 Cataract extraction status, unspecified eye; G43.909 Migraine, unspecified, not intractable, without status migrainosus; Z87.891 Personal history of nicotine dependence; I16.0 Hypertensive urgency; Z20.822 Contact with and (suspected) exposure to COVID-19; Z79.899 Other long term (current) drug therapy; Z88.1 Allergy status to other antibiotic agents; Z88.6 Allergy status to analgesic agent; Z88.8 Allergy status to other drugs, medicaments and biological substances

== ENCOUNTER → 2023-02-08 | Outpatient (CLI) | payer MEDICARE ==
[~2023-02-08] MED LIST changes: +BACI1CAP PO; +MILKSUS10 PO; +OMEGCAP4 PO; +PERCOCET PO; +SENO8.6T10 PO; +VITA-259 PO; +VITA100093 PO; +ZINC50TA4 PO
== END ==
LOC: M RAD 06:51
PROVIDERS: ATTEND Surgery
DX: R10.31 Right lower quadrant pain (principal); Z90.49 Acquired absence of other specified parts of digestive tract

== ENCOUNTER → 2024-02-08 | Outpatient (CLI) | payer MEDICARE ==
[~2024-02-08] MED LIST changes: +BENA25CA4 PO; +HYDR2.5C54 TOP; +ONDA-282 PO; -ONDA4TAB6 PO
== END ==
LOC: M EKG 09:12
PROVIDERS: ATTEND Internal Medicine Cardiovascular Disease
DX: I48.21 Permanent atrial fibrillation (principal)

== ENCOUNTER 2024-02-15 11:48 | Emergency (ER) | payer MEDICARE ==
[~2024-02-15] VITALS: Ht 177.8 cm; Wt 82.5 kg
[~2024-02-15 11:48] MED LIST changes: -BENA25CA4 PO; -HYDR2.5C54 TOP
[2024-02-15 12:19] LABS: BASO # 0.1 10^3/uL (0.0-0.2); BASO % 1.1 % (0.0-1.0); EOS # 0.6 10^3/uL (0.0-0.5); EOS % 9.8 % (0.0-3.0); HEMATOCRIT 40.9 % (42.0-52.0); HEMOGLOBIN 13.1 g/dl (13.5-17.5); LYMPH # 1.3 10^3/uL (1.5-5.0); LYMPH % 20.3 % (24.0-44.0); MEAN CORPUSCULAR HEMOGLOBIN 28.6 pg (27.0-33.0); MEAN CORPUSCULAR VOLUME 89.3 fl (80.0-96.0); MONO # 0.6 10^3/uL (0.0-0.8); NEUTROPHILS # 3.8 10^3/uL (1.5-8.5); NEUTROPHILS % 59.5 % (36.0-66.0); PLATELET COUNT, AUTOMATED 209 10^3/uL (150-450); RED BLOOD COUNT 4.58 10^6/uL (4.30-6.10); WHITE BLOOD COUNT 6.4 10^3/uL (4.0-10.0)
[2024-02-15 12:27] LABS: ERYTHROCYTE SEDIMENTATION RATE 21 mm/hr (0-20)
[2024-02-15 12:43] LABS: C REACTIVE PROTEIN QUANTITATIV < 0.40 MG/DL (<1.0)
[2024-02-15 12:44] LABS: BLOOD UREA NITROGEN 39 MG/DL (9-23); CALCIUM LEVEL 9.1 MG/DL (8.3-10.6); CARBON DIOXIDE LEVEL 22 MMOL/L (20-31); CHLORIDE LEVEL 112 MMOL/L (98-107); CREATININE FOR GFR 1.73 MG/DL (0.70-1.30); GLOMERULAR FILTRATION RATE 41.1 (>42); GLUCOSE, FASTING 101 MG/DL (74-106); POTASSIUM SERUM 4.5 MMOL/L (3.5-5.1); SODIUM LEVEL 143 MMOL/L (136-145)
[2024-02-15] MEDS: methylPREDNISolone 125MG 2ML VIAL IV ONE (14:08)
[2024-02-15] MEDS: LORATADINE 10 MG TAB PO ONE (14:08)
[2024-02-15] MEDS: FAMOTIDINE 20MG/2ML VIAL IVP ONE (14:08)
[2024-02-15 14:44] LABS: ALBUMIN 4.2 G/DL (3.2-5.2); BILIRUBIN,DIRECT 0.1 MG/DL (<0.4); BILIRUBIN,TOTAL 0.5 MG/DL (0.3-1.2); TOTAL PROTEIN 7.3 G/DL (5.7-8.2)
[2024-02-15 15:18] VITALS: BP 151/70; TEMP 97.4; O2SAT 100
[2024-02-15] MEDS ORDERED: PRED20TA PO (15:33)
[2024-02-15] MEDS ORDERED: BENA25CA4 PO (15:33)
[2024-02-15] MEDS ORDERED: HYDR2.5C54 TOP (15:33)
== END 2024-02-15 15:50 | disposition home or self-care (01) ==
LOC: M ED 11:48
DX: L03.113 Cellulitis of right upper limb (principal); I48.91 Unspecified atrial fibrillation; I10 Essential (primary) hypertension; K21.9 Gastro-esophageal reflux disease without esophagitis; N18.2 Chronic kidney disease, stage 2 (mild); M54.9 Dorsalgia, unspecified; Z86.73 Personal history of transient ischemic attack (TIA), and cerebral infarction without residual deficits; Z87.442 Personal history of urinary calculi; Z98.61 Coronary angioplasty status; Z79.899 Other long term (current) drug therapy; Z88.6 Allergy status to analgesic agent; Z88.1 Allergy status to other antibiotic agents
CPT/HCPCS: 80048; 80076; 83605; 85025; 85652; 86140; 87040; 96374; 96375; 99283; J2919

== ENCOUNTER → 2024-02-16 | Outpatient (CLI) | payer MEDICARE ==
[~2024-02-16] MED LIST changes: +BENA25CA4 PO; +HYDR2.5C54 TOP
== END ==
LOC: M PLAIMG 08:49
PROVIDERS: ATTEND Internal Medicine Cardiovascular Disease
DX: I50.32 Chronic diastolic (congestive) heart failure (principal); I48.21 Permanent atrial fibrillation; R94.31 Abnormal electrocardiogram [ECG] [EKG]

== ENCOUNTER → 2024-03-14 | Outpatient (CLI) | payer MEDICARE | LOC: M SLEEP HO 10:25 | PROVIDERS: ATTEND Internal Medicine Cardiovascular Disease | DX: G47.33 Obstructive sleep apnea (adult) (pediatric) (principal); I50.810 Right heart failure, unspecified ==

== ENCOUNTER 2024-05-04 13:41 | Emergency (ER) | payer MEDICARE ==
[~2024-05-04] VITALS: Ht 177.8 cm; Wt 80.9 kg
[2024-05-04] MEDS: BOOSTRIX VACCINE (TETANUS/DIPHTH/ACEL. PERTUSSIS) 0.5ML SYR IM ONE (15:20)
[2024-05-04] MEDS: ACETAMINOPHEN TAB 650MG DOSE (2X325MG) PO ONE (17:42)
[2024-05-04 18:11] VITALS: BP 179/87; TEMP 97.4; O2SAT 97
== END 2024-05-04 18:12 | disposition short-term general hospital (02) ==
LOC: M ED 13:41
DX: S05.30XA Ocular laceration without prolapse or loss of intraocular tissue, unspecified eye, initial encounter (principal); W22.8XXA Striking against or struck by other objects, initial encounter; Y92.9 Unspecified place or not applicable; Y93.89 Activity, other specified; Y99.9 Unspecified external cause status; I10 Essential (primary) hypertension; I25.10 Atherosclerotic heart disease of native coronary artery without angina pectoris; I48.91 Unspecified atrial fibrillation; Z86.73 Personal history of transient ischemic attack (TIA), and cerebral infarction without residual deficits; Z79.899 Other long term (current) drug therapy; Z88.6 Allergy status to analgesic agent; Z88.1 Allergy status to other antibiotic agents; Z88.8 Allergy status to other drugs, medicaments and biological substances

== ENCOUNTER → 2024-05-07 | Outpatient (CLI) | payer MEDICARE ==
[2024-05-07 08:49] LABS: BASO # 0.1 10^3/uL (0.0-0.2); BASO % 1.1 % (0.0-1.0); EOS # 0.6 10^3/uL (0.0-0.5); EOS % 8.9 % (0.0-3.0); HEMATOCRIT 41.4 % (42.0-52.0); HEMOGLOBIN 13.2 g/dl (13.5-17.5); LYMPH # 1.3 10^3/uL (1.5-5.0); MEAN CORPUSCULAR HEMOGLOBIN 29.1 pg (27.0-33.0); MEAN CORPUSCULAR HGB CONC 31.9 g/dl (32.0-36.5); MEAN CORPUSCULAR VOLUME 91.4 fl (80.0-96.0); MONO # 0.6 10^3/uL (0.0-0.8); NEUTROPHILS # 4.1 10^3/uL (1.5-8.5); NEUTROPHILS % 61.7 % (36.0-66.0); PLATELET COUNT, AUTOMATED 211 10^3/uL (150-450); RED BLOOD COUNT 4.53 10^6/uL (4.30-6.10); WHITE BLOOD COUNT 6.6 10^3/uL (4.0-10.0)
[2024-05-07 09:14] LABS: ALBUMIN 3.6 G/DL (3.2-5.2); BILIRUBIN,TOTAL 0.4 MG/DL (0.3-1.2); CREATININE FOR GFR 1.53 MG/DL (0.70-1.30); GLOMERULAR FILTRATION RATE 47.3 (>42); POTASSIUM SERUM 4.5 MMOL/L (3.5-5.1); TOTAL PROTEIN 6.6 G/DL (5.7-8.2)
== END ==
LOC: M LAB 08:12
PROVIDERS: ATTEND Internal Medicine Cardiovascular Disease
DX: I48.21 Permanent atrial fibrillation (principal); I50.810 Right heart failure, unspecified; I50.32 Chronic diastolic (congestive) heart failure

== ENCOUNTER → 2024-08-07 | Outpatient (CLI) | payer MEDICARE | LOC: M RAD 08:41 | PROVIDERS: ATTEND Internal Medicine Nephrology | DX: I70.1 Atherosclerosis of renal artery (principal); N28.1 Cyst of kidney, acquired; N26.1 Atrophy of kidney (terminal) ==

== ENCOUNTER → 2024-09-12 | Outpatient (REF) | payer MEDICARE ==
[2024-09-12 13:06] LABS: COMPLEMENT C3 115.6 MG/DL (90.0-170.0); COMPLEMENT C4 26.3 MG/DL (12-36)
== END ==
LOC: M LAB REF 11:45
PROVIDERS: ATTEND Internal Medicine Nephrology
DX: R31.9 Hematuria, unspecified (principal); N28.0 Ischemia and infarction of kidney

== ENCOUNTER → 2024-09-30 | Outpatient (CLI) | payer MEDICARE | LOC: M SLEEP 20:00 | PROVIDERS: ATTEND Nurse Practitioner Adult Health | DX: G47.33 Obstructive sleep apnea (adult) (pediatric) (principal) ==

== ENCOUNTER → 2024-11-02 | Outpatient (CLI) | payer MEDICARE ==
[2024-11-02 08:51] LABS: BASO # 0.1 10^3/uL (0.0-0.2); BASO % 0.8 % (0.0-1.0); EOS # 0.2 10^3/uL (0.0-0.5); EOS % 3.5 % (0.0-3.0); HEMATOCRIT 41.6 % (42.0-52.0); HEMOGLOBIN 13.3 g/dl (13.5-17.5); LYMPH # 1.3 10^3/uL (1.5-5.0); LYMPH % 21.1 % (24.0-44.0); MEAN CORPUSCULAR HEMOGLOBIN 29.2 pg (27.0-33.0); MEAN CORPUSCULAR VOLUME 91.2 fl (80.0-96.0); MONO # 0.6 10^3/uL (0.0-0.8); MONO % 9.1 % (2.0-8.0); NEUTROPHILS % 65.2 % (36.0-66.0); PLATELET COUNT, AUTOMATED 184 10^3/uL (150-450); RED BLOOD COUNT 4.56 10^6/uL (4.30-6.10); WHITE BLOOD COUNT 6.1 10^3/uL (4.0-10.0)
[2024-11-02 09:23] LABS: ALBUMIN 3.7 G/DL (3.2-5.2); BILIRUBIN,TOTAL 0.5 MG/DL (0.3-1.2); CALCIUM LEVEL 8.5 MG/DL (8.3-10.6); CREATININE FOR GFR 1.55 MG/DL (0.70-1.30); GLOMERULAR FILTRATION RATE 46.5 (>42); POTASSIUM SERUM 4.9 MMOL/L (3.5-5.1); TOTAL PROTEIN 6.3 G/DL (5.7-8.2)
== END ==
LOC: M LAB 08:15
PROVIDERS: ATTEND Internal Medicine Cardiovascular Disease
DX: I50.32 Chronic diastolic (congestive) heart failure (principal)

== ENCOUNTER → 2024-11-02 | Outpatient (CLI) | payer MEDICARE ==
[2024-11-02 09:21] LABS: PROSTATIC SPECIFIC AG MONITOR 0.22 NG/ML (< 4.00)
[2024-11-02 09:23] LABS: CHOLESTEROL RISK RATIO 4.74 (<5); HDL CHOLESTEROL 33.5 MG/DL (>40); LDL CHOLESTEROL 102.1 MG/DL (<100); NON-HDL-C 125.5 MG/DL
[2024-11-02 09:25] LABS: THYROID STIMULATING HORMONE 1.428 uIU/ML (0.55-4.78); TOTAL 25(OH) VITAMIN D 63.1 NG/ML (20.0-100.0)
== END ==
LOC: M LAB 08:17
PROVIDERS: ATTEND Physician Assistant
DX: E78.5 Hyperlipidemia, unspecified (principal); R97.20 Elevated prostate specific antigen [PSA]

== ENCOUNTER → 2025-04-08 | Outpatient (CLI) | payer MEDICARE ==
[~2025-04-08] MED LIST changes: +SLOW1TAB3 PO; -SLOWTAB2 PO
[2025-04-08 13:54] LABS: ESTIMATED AVERAGE GLUCOSE 120.0 MG/DL (60-110)
== END ==
LOC: M LAB 12:37
PROVIDERS: ATTEND Physician Assistant
DX: R73.01 Impaired fasting glucose (principal)